=== PATIENT | male | born 1940 | race Caucasian/White ===

== ENCOUNTER 2018-01-05 20:32 | Inpatient (IN) | payer OTHER ==
[~2018-01-05] VITALS: Ht 165.1 cm; Wt 63.1 kg
[2018-01-06] VITALS (9 sets, daily range): BP systolic 95–110; BP diastolic 54–66
--- NOTE | 2018-01-06 | NUR ---
NEW ADMISSION NOTES PATIENT RECEIVED FROM [facility], DIRECT ADMIT TO MED SURG UNIT IN ROOM 313-1, DUE TO C/O INCREASED SWELLING OF LEGS X 1 WEEK & C/O SOB ON 01/05/18. A & O X 4, RESPONSIVE, HOB ELEVATED, NO SOB @ THIS TIME. ON O2 @ 2LMP VIA NC WITH O2SAT 95 %. ON TELE MONITORING WITH A FIB 90, HAS PACEMAKER LCW. NO C/O PAIN, NO ACUTE DISTRESS NOTED. ABLE TO VERBALIZE NEEDS. V/S CHECKED & WNL, ASSOCIATE DIRECTOR CAREER SERVICES MADE AWARE. ON REGULAR DIET. ALL NEW ORDERS NOTED & CARRIED OUT. BODY CHECK DONE, PHOTOS TAKEN & DOCUMENTED. ALL BELONGINGS ACCOUNTED FOR & DOCUMENTED BY PHOTOGRAMMETRIC TECH. USES URINAL & BRP WITH ASSISTANCE. BED IN LOW LOCKED POSITION. CALL LIGHT WITHIN REACH. WILL CONTINUE TO MONITOR CLOSELY.
[2018-01-06] MEDS ORDERED: ONDANSETRON HCL/PF 4 MG/2 ML VIAL IVP PRN (01:30)
[2018-01-06] MEDS ORDERED: ACETAMINOPHEN 325 MG TABLET PO PRN (01:30)
[2018-01-06] MEDS ORDERED: MAGNESIUM HYDROXIDE 30 ML UDC PO PRN (01:30)
[2018-01-06] MEDS ORDERED: ZOLPIDEM TARTRATE 5 MG TABLET PO PRN (01:30)
[2018-01-06] MEDS ORDERED: IPRATROPIUM NEB FS 0.5 MG/2.5 ML AMPUL.NEB NEB PRN (01:30)
[2018-01-06] MEDS ORDERED: ALBUTEROL FS 2.5 MG/0.5 ML VIAL.NEB NEB PRN (01:30)
[2018-01-06] MEDS ORDERED: Z GUARD REMEDY 2 OZ OINT TP PRN (01:30)
[2018-01-06] MEDS ORDERED: HYDROCODONE/APAP 5/325MG 1 EACH TABLET PO PRN (01:30)
[2018-01-06] MEDS ORDERED: LASIX IV (05:39)
[2018-01-06] MEDS ORDERED: ASPI-1169 PO (05:39)
[2018-01-06] MEDS ORDERED: LASIX PO (05:48)
[2018-01-06] MEDS ORDERED: OMEP10CA4 PO (05:48)
[2018-01-06] MEDS ORDERED: MIRT15TA PO (05:48)
[2018-01-06 06:47] LABS: CALCIUM, SERUM 8.1 mg/dL (8.5-10.1); CHLORIDE 105 mmol/L (98-107); GLUCOSE 96 mg/dL (74-106); MAGNESIUM 2.1 mg/dL (1.8-2.4); PHOSPHORUS 3.8 mg/dL (2.5-4.9); POTASSIUM 3.9 mmol/L (3.5-5.1); SODIUM SERUM 149 mmol/L (136-145); UREA NITROGEN, BLOOD 24 mg/dL (7-18)
[2018-01-06 06:56] LABS: BASOPHILS % (AUTO) 0.3 % (0.0-2.0); EOSINOPHILS # (AUTO) 0.1 /CMM (0.0-0.7); EOSINOPHILS % (AUTO) 2.5 % (0.0-6.0); HEMATOCRIT 27 % (39-51); HEMOGLOBIN 8.9 g/dL (13.5-17.5); LYMPHOCYTES # (AUTO) 0.8 /CMM (0.8-4.8); LYMPHOCYTES % (AUTO) 24.2 % (20.0-44.0); MEAN CORPUSCULAR HEMOGLOBIN 32 PG (26.0-33.0); MEAN CORPUSCULAR HGB CONC 33 g/dl (31.0-36.0); MEAN CORPUSCULAR VOLUME 96 fL (80-96); MONOCYTES # (AUTO) 0.2 /CMM (0.1-1.30); MONOCYTES % (AUTO) 6.9 % (2.0-12.0); NEUTROPHILS # (AUTO) 2.3 /CMM (1.8-8.9); NEUTROPHILS % (AUTO) 66.1 % (43.0-81.0); PLATELET COUNT (AUTO) 122 /CMM (150-450); RDW COEFFICIENT OF VARIATION 20.2 (11.5-15.0); RED BLOOD CELL COUNT(AUTO) 2.81 MIL/uL (4.5-6.0); WHITE BLOOD COUNT (AUTO) 3.5 K/uL (4.3-11.0)
[2018-01-06 06:58] LABS: CHOLESTEROL 96 mg/dL (<200); HDL CHOLESTEROL 46 mg/dL (40-60); LDL 49 mg/dL (0-99); TRIGLYCERIDES 42 mg/dL (30-150)
--- NOTE | 2018-01-06 06:59 | NUR ---
TELE NR CLOSING NOTES PATIENT RESTING IN BED, A & O X 4, RESPONSIVE, HOB ELEVATED, NO SOB @ THIS TIME. ON O2 @ 2LMP VIA NC WITH O2SAT 96 %. ON TELE MONITORING WITH A FIB 92, HAS PACEMAKER LCW. NO C/O PAIN, NO ACUTE DISTRESS NOTED. ABLE TO VERBALIZE NEEDS. ON REGULAR DIET. USES URINAL & BRP WITH ASSISTANCE. BED IN LOW LOCKED POSITION. CALL LIGHT WITHIN REACH. WILL ENDORSE TO AM RN FOR CONTINUITY OF CARE.
[2018-01-06 07:19] LABS: CARBON DIOXIDE 43 mmol/L (21-32)
--- NOTE | 2018-01-06 07:20 | NUR ---
LAB CALLED LAB PERSON CALLED TO INFORM THAT PATIENTS CO2 LEVEL IS 43, ENDORSED TO AM RN TO RELAY TO MD. PT IS IN NO DISTRESS, NO SOB NOTED @ THIS TIME.
[2018-01-06] MEDS ORDERED: FURO-145 PO (07:28)
[2018-01-06 09:00] LABS: ALBUMIN 2.7 g/dL (3.4-5.0); BILIRUBIN,DIRECT 0.2 mg/dL (0.0-0.2); BILIRUBIN,TOTAL 0.6 mg/dL (0.2-1.0); TOTAL PROTEIN, SERUM 7.5 g/dL (6.4-8.2)
[2018-01-06] MEDS ORDERED: ASPIRIN 81 MG TAB.CHEW PO SCH (09:00)
[2018-01-06 09:11] LABS: THYROID STIMULATING HORMONE 4.932 uIU/mL (0.358-3.74)
--- NOTE | 2018-01-06 09:31 | NUR ---
MARKETING DATA SPECIALIST NOTES PATIENT IS AWAKE, ON OXYGEN AT 2L VIA NC. ELEVATED CO2 43, DR. HERNANDEZ IS AWARE. AFIB HR 101 ON THE MONITOR, DENIES CHEST PAIN, NO SOB. MAINTAIN FALL PRECAUTION, WILL CONT TO MONITOR.
[2018-01-06] MEDS: FUROSEMIDE 40 MG/4 ML VIAL IV SCH ×3 (11:01→17:10)
--- NOTE | 2018-01-06 11:31 | NUR ---
ENDORSED TO REID BULLOCK FOR ELIANE.
--- NOTE | 2018-01-06 12:00 | NUR ---
RN NOTES PT IS SITTING UP IN BED, RESTING COMFORTABLY. PT ON 2L O2, RESPIRATIONS ARE EVEN AND UNLABORED. IV ON RFA INTACT AND SL. SAFETY MEASURES ARE IN PLACE, CALL LIGHT IS IN REACH. WILL CONTINUE TO MONITOR.
[2018-01-06 15:07] LABS: ABG BASE EXCESS 14.5 mmol/L; ABG PCO2 69.1 mmHg (35.0-45.0); ABG PH 7.398 (7.350-7.450); ABG PO2 131.1 mmHg (75.0-100.0); AaDO2 16.2 mmHg; COHb 0.4 % (0.5-1.5); MetHb 0.4 % (0.0-1.5); O2Hb 97.2 % (94.0-97.0); SITE, ABG Right Brachial; VENT MODE, BG NASAL CANNULA
[2018-01-06] MEDS: MIRTAZAPINE 15 MG TABLET PO SCH (17:10)
--- NOTE | 2018-01-06 18:31 | NUR ---
RN NOTES PT IS SITTING UP IN BED, ALERT AND RESTING COMFORTABLY. PT ON 2L O2, RESPIRATIONS ARE EVEN AND UNLABORED. IV ON RFA INTACT AND SL. ALL MEDS WERE GIVEN ORDERED AND PT NEEDS MET. NO SIGNS OF DISTRESS NOTED. SAFETY MEASURES ARE IN PLACE, CALL LIGHT IS IN REACH. WILL ENDORSE TO CUSTOMS OFFICER RN FOR CONTINUITY OF CARE.
--- NOTE | 2018-01-06 19:30 | NUR ---
RN NOTE PATIENT RESTING IN BED, A & O X 4, RESPONSIVE, HOB ELEVATED, NO SOB @ THIS TIME. ON O2 @ 2LMP VIA NC WITH O2SAT 96 %. ON TELE MONITORING WITH A FIB 98, HAS PACEMAKER LCW. NO C/O PAIN, NO ACUTE DISTRESS NOTED. ABLE TO VERBALIZE NEEDS. ON REGULAR DIET. USES URINAL & BRP WITH ASSISTANCE. BED IN LOW LOCKED POSITION. CALL LIGHT WITHIN REACH. WILL ENDORSE TO AM RN FOR CONTINUITY OF CARE.
--- NOTE | 2018-01-07 06:46 | NUR ---
ms rn note all needs met and attended to. Will endorse to day shift for darren.
[2018-01-07] MEDS ORDERED: PANTOPRAZOLE 40 MG TABLET.DR PO SCH (07:30)
--- NOTE | 2018-01-07 07:35 | NUR ---
MS RN OPENING NOTE. PT RECEIVED A&0X3, WATCHING T.V. PT WITH O2 VIA NC AT 2LPM, DENIES SOB, LUNGS AUSCULTATED DIMINISHED WITH CRACKLES. PT DENIES PAIN. PT WITH R FA IVC G#20 INTACT AND SALINE FLUSH PATENT. BED IN LOWEST LOCKED POSITION WITH HANDRAILSX2 AND CALL BISWAS WITHIN REACH. PT BRIEFED ON TODAY'S POC AND IS WITHOUT CONCERN OR COMPLAINT AT THIS TIME.
[2018-01-07 07:55] LABS: BASOPHILS % (AUTO) 0.4 % (0.0-2.0); EOSINOPHILS # (AUTO) 0.1 /CMM (0.0-0.7); EOSINOPHILS % (AUTO) 2.7 % (0.0-6.0); HEMATOCRIT 29 % (39-51); HEMOGLOBIN 9.3 g/dL (13.5-17.5); LYMPHOCYTES # (AUTO) 0.8 /CMM (0.8-4.8); LYMPHOCYTES % (AUTO) 22.2 % (20.0-44.0); MEAN CORPUSCULAR HEMOGLOBIN 32 PG (26.0-33.0); MEAN CORPUSCULAR HGB CONC 33 g/dl (31.0-36.0); MEAN CORPUSCULAR VOLUME 97 fL (80-96); MONOCYTES # (AUTO) 0.3 /CMM (0.1-1.30); MONOCYTES % (AUTO) 9.4 % (2.0-12.0); NEUTROPHILS # (AUTO) 2.4 /CMM (1.8-8.9); NEUTROPHILS % (AUTO) 65.3 % (43.0-81.0); PLATELET COUNT (AUTO) 128 /CMM (150-450); RDW COEFFICIENT OF VARIATION 20.4 (11.5-15.0); RED BLOOD CELL COUNT(AUTO) 2.94 MIL/uL (4.5-6.0); WHITE BLOOD COUNT (AUTO) 3.6 K/uL (4.3-11.0)
[2018-01-07 08:00] VITALS: BP 106/70
[2018-01-07 08:06] LABS: CALCIUM, SERUM 8.1 mg/dL (8.5-10.1); CHLORIDE 100 mmol/L (98-107); GLUCOSE 76 mg/dL (74-106); POTASSIUM 3.4 mmol/L (3.5-5.1); SODIUM SERUM 146 mmol/L (136-145); UREA NITROGEN, BLOOD 23 mg/dL (7-18)
--- NOTE | 2018-01-07 08:08 | NUR ---
RN NOTES. PT CARE ENDORSED TO REID BROWER AT BEDSIDE.
[2018-01-07 08:09] LABS: CARBON DIOXIDE 43 mmol/L (21-32)
--- NOTE | 2018-01-07 08:10 | NUR ---
MS RN OPENING NOTE RECEIVED REPORT FROM REID HILARIO. PATIENT IS ALERT AND ORIENTED x4. NO PAIN AT THIS TIME. NO SOB OR DISTRESS NOTED. CALL LIGHT WITHIN REACH. SAFETY MEASURES IMPLEMENTED. ABLE TO COMMUNICATE NEEDS. IV INTACT AND PATENT NO REDNESS OR SWELLING NOTED. ON 2L/MIN OXYGEN VIA NASAL CANNULA TOLERATING WELL. WILL CONTINUE TO MONITOR THROUGHOUT SHIFT
[2018-01-07] MEDS: ASPIRIN 81 MG TAB.CHEW PO SCH (08:19)
[2018-01-07] MEDS ORDERED: FUROSEMIDE 20 MG TABLET PO SCH (09:00)
[2018-01-07] MEDS ORDERED: POTASSIUM CHLORIDE 20 MEQ TAB.PRT.SR PO SCH (10:00)
--- NOTE | 2018-01-07 11:36 | NUR ---
WOUND CARE CONSULT: PT PRESENTS WITH SACRAL SCARRING (FRAGILE) AND RT LOWER LEG OPEN ABRASION, PRESENT ON ADMISSION. PT IS VERY THIN AND BONY. RECOMMENDATIONS MADE FOR SKIN PROTECTION AND WOUND CARE. DISCUSSED WITH NURSING STAFF. IN AGREEMENT WITH PLAN OF CARE. CURRENT BARRERA SCORE IS 17. Addendum: 01/07/18 at 1138 by JILLIAN CABELLO WNDNU Amended: Links added.
[2018-01-07] MEDS: BACITRACIN/POLYMYXIN B 15 GM TUBE TP SCH (12:00)
[2018-01-07] MEDS ORDERED: PANTOPRAZOLE 40 MG VIAL IV SCH (14:30)
[2018-01-07 15:58] VITALS: BP 97/65
[2018-01-07] MEDS: MIRTAZAPINE 15 MG TABLET PO SCH (17:52)
--- NOTE | 2018-01-07 18:31 | NUR ---
MS RN CLOSING NOTE PATIENT IS ALERT AND ORIENTED x4. NO PAIN AT THIS TIME. NO SOB OR DISTRESS NOTED. CALL LIGHT WITHIN REACH AT ALL TIMES. SAFETY MEASURES IMPLEMENTED. ABLE TO COMMUNICATE NEEDS. IV INTACT AND PATENT NO REDNESS OR SWELLING NOTED. ALL NURSING CARE NEEDS NEEDS ATTENDED. COLLECTED AFB SPUTUM TO RULE OUT POSSIBLE TB. PATIENT NOW IN ROOM 317 FOR NEGATIVE PRESSURE ROOM. REQUIRES CPAP/BIPAP AT NIGHT ONLY PER MD BIANCHI. ON ROOM AIR AT THIS TIME WITH O2 SATURATION AT 97% WILL ENDORSE TO UPPER CUTTER NURSE FOR ELIANE
--- NOTE | 2018-01-07 19:15 | NUR ---
MS/RN OPENING NOTES PT RECEIVED AWAKE, RESTING COMFORTABLY IN BED. A/OX3. ON 2L O2 VIA NC, BREATHING EVEN AND UNLABORED. DENIES SOB OR PAIN AT THIS TIME. PRODUCTIVE COUGH NOTED. ON ISOLATION TO R/O TB. IV TO RFA PATENT AND INTACT. BED IN LOW/LOCKED POSITION WITH CALL LIGHT IN REACH. SIDE RAILS UPX2 AND BED ALARM ON FOR SAFETY. WITH ORDERS FOR CPAP/BIPAP TONIGHT. RT AWARE. WILL CONTINUE TO MONITOR
[2018-01-07 20:00] VITALS: BP 102/61
--- NOTE | 2018-01-07 20:28 | NUR ---
MS/RN NOTES PER DR. TOLBERT, ORDERS FOR CPAP/BIPAPA SETTINGS TO BE 15 OVER 5 WITH A RATE OF 16. ORDERS NOTED AND READBACK PER PROTOCOL FOR VERIFICATION. RT NOTIFIED OF SETTINGS.
[2018-01-07] MEDS ORDERED: FUROSEMIDE 20 MG/2 ML VIAL IV SCH (20:30)
--- NOTE | 2018-01-07 20:53 | NUR ---
RT NOTE PATIENT RECEIVED ON 2LPM NC. BIPAP SET UP ON CURRENT ORDERED SETTINGS. PATIENT CURRENTLY REFUSING BIPAP AT THIS TIME. PRIMARY NURSE NOTIFIED AND AWARE. PATIENT HAS NO SIGNS OF RESPIRATORY DISTRESS NOTED. WILL CONTINUE TO MONITOR.
--- NOTE | 2018-01-07 20:59 | NUR ---
MS/RN NOTES SPOKE TO LAB, NOT ENOUGH SPUTUM COLLECTED FOR AFB. PT MADE AWARE. WILL RECOLLECT
--- NOTE | 2018-01-07 21:20 | NUR ---
MS/RN NOTES BP 104/68, PX=[id number] PRIOR TO ONE TIME DOSE OF LASIX 40MG. EDUCATED PT ON SIDE EFFECTS OF LASIX AND EXTRA URINAL PROVIDED. ENCOURAGED PT NOT TO GET OUT OF BED WITHOUT ASSISTANCE, PT VERBALIZED UNDERSTANDING. GAVE LASIX SLOWLY OVER 4MINS
--- NOTE | 2018-01-07 22:29 | NUR ---
RT NOTE PATIENT PLACED ON BIPAP ON SETTINGS OF 15/5 RR16 FIO2 35% PER NURSE EDUARD MATHEWS. PATIENT IS TOLERATING BIPAP WELL AT THIS TIME. NO SIGNS OF RESPIRATORY DISTRESS NOTED. BIPAP IS PLUGGED INTO RED OUTLET. ALARMS ARE ON AND AUDIBLE. WILL CONTINUE TO MONITOR. Addendum: 01/07/18 at 2309 by JONO LLOYD RT Amended: Links added.
--- NOTE | 2018-01-08 03:30 | NUR ---
RT NOTE PATIENT IS AWAKE AND ALERT. PATIENT REFUSING BIPAP AT THIS TIME. EXPLAINED IMPORTANCE AND BENEFITS OF BIPAP. NO SIGNS OF RESPIRATORY DISTRESS AT THIS TIME. PATIENT CURRENTLY TOLERATING 2LPM VIA NC. SpO2 97% HR 109.
--- NOTE | 2018-01-08 07:00 | NUR ---
MS/RN CLOSING NOTES PT RESTING COMFORTABLY IN BED. A/OX3. ON 2L O2 VIA NC, BREATHING EVEN AND UNLABORED. NO SOB OR PAIN AT THIS TIME. IV TO RFA PATENT AND INTACT. ISOLATION PRECAUTIONS IMPLEMENTED THROUGHOUT SHIFT. PT USED CPAP FOR A FEW HOURS DURING THE SHIFT. PT REFUSED SINCE 329. EDUCATION PROVIDED X3 OF IMPORTANCE OF CPAP USE, PT VERBALIZED UNDERSTANDING BUT STILL REFUSING. UNABLE TO COLLECT SPUTUM. BED IN LOW/LOCKED POSITION WITH CALL LIGHT IN REACH. SIDE RAILS UPX2. WILL ENDORSE TO DAY SHIFT RN ELIANE.
--- NOTE | 2018-01-08 07:30 | NUR ---
MS/RN OPENING NOTE PATIENT IN BED AWAKE. ALERT AND ORIENTED X4. DENIES SOB. RESPIRATION REGULAR AND UNLABORED. DENIES PAIN AT THIS TIME. IN NO APPARENT DISTRESS. THE PATIENT IS EDUCTAED ABOUT THE CPAP AND THE PATIENT VERBALIZED UNDERSTANDING AND SAID WILL BE COMPLIANT WITH CPAP USE. RFA G 20 PATENT. THE PATIENT IS REMINDED. THE PATIENT CONTINENT. NO BLADDER DISTENSION NOTED. BED LOW AND LOCKED. SIDE RAILS UP X2. CALL LIGHT WITHIN REACH. WILL CONTINUE TO MONITOR.
[2018-01-08 07:42] LABS: BASOPHILS % (AUTO) 0.5 % (0.0-2.0); EOSINOPHILS # (AUTO) 0.1 /CMM (0.0-0.7); EOSINOPHILS % (AUTO) 2.4 % (0.0-6.0); HEMATOCRIT 28 % (39-51); LYMPHOCYTES # (AUTO) 0.7 /CMM (0.8-4.8); LYMPHOCYTES % (AUTO) 19.7 % (20.0-44.0); MEAN CORPUSCULAR HEMOGLOBIN 32 PG (26.0-33.0); MEAN CORPUSCULAR HGB CONC 33 g/dl (31.0-36.0); MEAN CORPUSCULAR VOLUME 97 fL (80-96); MONOCYTES # (AUTO) 0.3 /CMM (0.1-1.30); NEUTROPHILS # (AUTO) 2.5 /CMM (1.8-8.9); NEUTROPHILS % (AUTO) 68.4 % (43.0-81.0); PLATELET COUNT (AUTO) 119 /CMM (150-450); RED BLOOD CELL COUNT(AUTO) 2.84 MIL/uL (4.5-6.0); WHITE BLOOD COUNT (AUTO) 3.7 K/uL (4.3-11.0)
[2018-01-08 08:00] LABS: CALCIUM, SERUM 8.1 mg/dL (8.5-10.1); CHLORIDE 101 mmol/L (98-107); CREATININE 0.9 mg/dL (0.6-1.3); GLUCOSE 84 mg/dL (74-106); POTASSIUM 3.6 mmol/L (3.5-5.1); SODIUM SERUM 143 mmol/L (136-145); UREA NITROGEN, BLOOD 24 mg/dL (7-18)
--- NOTE | 2018-01-08 08:09 | NUR ---
RT NOTE PT RCVD ON N/C 28%. SPO2 96%. BREATH SOUNDS DIMINISHED. NO DISTRESS NOTED. PT IS AWAKE AND ALERT.
[2018-01-08 08:13] VITALS: BP 108/69
[2018-01-08 08:18] LABS: CARBON DIOXIDE 44 mmol/L (21-32)
[2018-01-08] MEDS: ASPIRIN 81 MG TAB.CHEW PO SCH (09:17)
--- NOTE | 2018-01-08 09:43 | NUR ---
MS/RN NOTE POLYSPORIN NOT DELIVERED YET. FOLLOW UP CALL TO PHARM IS MADE.
[2018-01-08] MEDS: BACITRACIN/POLYMYXIN B 15 GM TUBE TP SCH (13:56)
[2018-01-08] MEDS: PANTOPRAZOLE 40 MG VIAL IV SCH (13:57)
[2018-01-08] MEDS ORDERED: POTASSIUM CHLORIDE 20 MEQ POWDER PACKET PO ONE (15:00)
[2018-01-08 16:00] VITALS: BP 106/68
[2018-01-08] MEDS: BUMETANIDE (1 MG) 1 MG TABLET PO SCH (16:32)
--- NOTE | 2018-01-08 18:11 | NUR ---
MS/RN CLOSING NOTE PATIENT IN BED AWAKE/ ALERT AND ORIENTED X4. DENIES SOB. RESPIRATION REGULAR AND UNLABORED. DENIES PAIN AT THIS TIME. RIGHT FOREARM G 20 PATENT. GOOD AND GENTLE SKIN CARE RENDERED. KEPT CLEAN, DRY AND COMFORTABLE. ALL NEEDS ATTENDED AND ANTICIPATED. BED LOW AND LOCKED. SIDE RAILS UP X2. CALL LIGHT WITHIN REACH. WILL ENDORSE TO BLOWER FEEDER DYED RAW STOCK.
[2018-01-08] MEDS: MIRTAZAPINE 15 MG TABLET PO SCH (18:45)
--- NOTE | 2018-01-08 19:25 | NUR ---
RN OPEN NOTES RECEIVED PATIENT AWAKE IN BED EATING WITH AT BEDSIDE. A/O X4. NO SIGNS OF DISTRESS OR DISCOMFORT. BREATHING EVEN AND UNLABORED. ON 2LPM O2 VIA NC. IV ACCESS IN RFA, PATENT AND INTACT, NO SIGNS OF REDNESS OR INFILTRATION. BED IN LOW LOCKED POSITION WITH SIDE RAILS X2. CALL LIGHT WITHIN REACH. WILL CONTINUE TO MONITOR.
[2018-01-08 20:00] VITALS: BP 103/63
--- NOTE | 2018-01-09 | NUR ---
RN NOTES PATIENT REFUSING CPAP X3. STATES HE SPOKE WITH THE DRPamela AND PER MD ITS OK FOR HIM NOT TO USE IT. RISK AND BENEFITS EXPLAINED. NO S/S OF SOB OR DISTRESS. WILL CONTINUE TO MONITOR.
--- NOTE | 2018-01-09 06:53 | NUR ---
RN CLOSING NOTES PATIENT RESTING IN BED WITH AT BEDSIDE, EASILY AROUSABLE. A/O X4. NO SIGNS OF DISTRESS OR DISCOMFORT. BREATHING EVEN AND UNLABORED. ON 2LPM O2 VIA NC. IV ACCESS IN RFA, PATENT AND INTACT, NO SIGNS OF REDNESS OR INFILTRATION. ALL NEEDS MET. NO SIGNIFICANT CHANGES THROUGH THE NIGHT. BED IN LOW LOCKED POSITION WITH SIDE RAILS X2. CALL LIGHT WITHIN REACH. WILL ENDORSE TO AM SHIFT FOR ELIANE.
--- NOTE | 2018-01-09 07:10 | NUR ---
RN NOTES PATIENT RESTING IN BED. NONLABORED BREATHING NOTED ON 2 L NASAL CANNULA. PATIENT AOX4. DENIES PAIN, DENYING COUGHING. IV ACCESS ON RFA PATENT AND INTACT. PATIENT KEPT CLEAN AND COMFORTABLE. BED IN LOWEST LOCKED POSITION. CALL LIGHT WITHIN REACH. EDUCATED MARKETING PROJECT MANAGER LIGHT USAGE
--- NOTE | 2018-01-09 07:10 | NUR ---
RN INITIAL NOTED PATIENT RESTING IN BED. NONLABORED BREATHING NOTED ON 2L NASAL CANNULA. NO SIGNS OF DISTRESS. IV SIT ON RIGHT HAND PATENT AND INTACT. DENYING PAIN. NO COUGHING NOTED. BED IN LOWEST LOCKED POSITION. CALL LIGHT WITHIN REACH.
[2018-01-09 07:28] LABS: CHLORIDE 102 mmol/L (98-107); CREATININE 0.9 mg/dL (0.6-1.3); GLUCOSE 85 mg/dL (74-106); POTASSIUM 3.9 mmol/L (3.5-5.1); SODIUM SERUM 145 mmol/L (136-145); UREA NITROGEN, BLOOD 23 mg/dL (7-18)
[2018-01-09 07:37] LABS: CARBON DIOXIDE 44 mmol/L (21-32)
[2018-01-09 08:00] VITALS: BP 97/55
[2018-01-09] MEDS: ASPIRIN 81 MG TAB.CHEW PO SCH (09:23)
[2018-01-09] MEDS: BUMETANIDE (1 MG) 1 MG TABLET PO SCH (09:23)
[2018-01-09] MEDS: BACITRACIN/POLYMYXIN B 15 GM TUBE TP SCH (09:30)
--- NOTE | 2018-01-09 10:00 | NUR ---
RN NOTES: PATIENT REFUSING CPAP, ENEDELIA TIMMONS AWARE. AWARE OF CO2 OF 44 AND TODAY'S LABS
[2018-01-09] MEDS: PANTOPRAZOLE 40 MG VIAL IV SCH (13:36)
[2018-01-09 16:00] VITALS: BP 93/60
[2018-01-09 16:11] VITALS: BP 93/60
[2018-01-09] MEDS: MIRTAZAPINE 15 MG TABLET PO SCH (18:19)
--- NOTE | 2018-01-09 19:45 | NUR ---
RN CLOSING NOTED PATIENT RESTING IN BED. NONLABORED BREATHING NOTED ON 2L NASAL CANNULA. NO SIGNS OF DISTRESS. IV SIT ON RIGHT HAND PATENT AND INTACT. DENYING PAIN. NO COUGHING NOTED. BED IN LOWEST LOCKED POSITION. CALL LIGHT WITHIN REACH. DURING SHIFT, PATIENT AMBULATED TO BATHROOM WITH ASSISTANCE,DENIED DIZZINESS. KEPT CLEAN AND DRY.EDUCATED ON THE IMPORTANCE OF STOOL COLLECTION FOR OCCULT BLOOD TEST. ENDORSED TO NEXT SHIFT
[2018-01-09 20:00] VITALS: BP 105/65
--- NOTE | 2018-01-10 06:45 | NUR ---
MS RN NOTES PT C/O SOB. PT REQUESTING FOR BREATHING TX. RT NOTIFIED. WILL CONTINUE TO MONITOR.
--- NOTE | 2018-01-10 06:47 | NUR ---
PATIENT PLACED ON BIPAP TEMPORARILY. TAKEN OFF AFTER PT REGAIN THEIR BREATH. BREATHING TX GIVEN. PT SAID SOB IS RECOVERED. WILL CONTINUE TO MONITOR Addendum: 01/10/18 at 0650 by ELVIS FRAIRE RT Amended: Links added.
--- NOTE | 2018-01-10 07:00 | NUR ---
MS RN NOTES AWAKE & RESPONSIVE. NOT IN ANY DISTRESS. NO SOB NOTED. DENIES ANY PAIN OR DISCOMFORT AT THIS TIME. WITH IV-HL PATENT & INTACT. CALL LIGHT WITHIN REACH. BED IN LOWEST POSITION. SR UP X 2 FOR SAFETY. WILL ENDORSE TO NEXT SHIFT.
[2018-01-10 07:17] LABS: BASOPHILS % (AUTO) 0.2 % (0.0-2.0); EOSINOPHILS # (AUTO) 0.1 /CMM (0.0-0.7); HEMATOCRIT 29 % (39-51); HEMOGLOBIN 9.6 g/dL (13.5-17.5); LYMPHOCYTES # (AUTO) 0.9 /CMM (0.8-4.8); MEAN CORPUSCULAR HEMOGLOBIN 32 PG (26.0-33.0); MEAN CORPUSCULAR HGB CONC 33 g/dl (31.0-36.0); MEAN CORPUSCULAR VOLUME 97 fL (80-96); MONOCYTES # (AUTO) 0.3 /CMM (0.1-1.30); MONOCYTES % (AUTO) 8.2 % (2.0-12.0); NEUTROPHILS # (AUTO) 2.7 /CMM (1.8-8.9); NEUTROPHILS % (AUTO) 65.6 % (43.0-81.0); PLATELET COUNT (AUTO) 131 /CMM (150-450); RDW COEFFICIENT OF VARIATION 19.8 (11.5-15.0); RED BLOOD CELL COUNT(AUTO) 2.99 MIL/uL (4.5-6.0); WHITE BLOOD COUNT (AUTO) 4.1 K/uL (4.3-11.0)
[2018-01-10 07:47] LABS: CALCIUM, SERUM 8.1 mg/dL (8.5-10.1); CHLORIDE 101 mmol/L (98-107); CREATININE 0.9 mg/dL (0.6-1.3); GLUCOSE 96 mg/dL (74-106); POTASSIUM 4.1 mmol/L (3.5-5.1); SODIUM SERUM 143 mmol/L (136-145); UREA NITROGEN, BLOOD 23 mg/dL (7-18)
[2018-01-10 07:51] LABS: CARBON DIOXIDE 44 mmol/L (21-32)
[2018-01-10 08:00] VITALS: BP 107/64
--- NOTE | 2018-01-10 08:00 | NUR ---
rn notes RECEIVED PATIENT IN THE ROOM, POSSIBLE TB,, PATIENT ON O2 -2L NC, V/S TAKEN STABLE, PATIENT HAS NO RESPIRATORY DISTRESS, REFUSED PAIN AT THIS TIME. ENCOURAGED TO EXPRESS FEELINGS AND CONCERNS. PATIENT USING URINAL. PATIENT TURN AND REPOSTION Q 2 HR. CALL LIGHT WITHIN TO REACH, SAFETY PRECAUTION MAINTAINED ALL THE TIME.
[2018-01-10] MEDS: BACITRACIN/POLYMYXIN B 15 GM TUBE TP SCH (09:47)
[2018-01-10] MEDS: BUMETANIDE (1 MG) 1 MG TABLET PO SCH (09:47)
[2018-01-10] MEDS: ASPIRIN 81 MG TAB.CHEW PO SCH (09:47)
--- NOTE | 2018-01-10 10:00 | NUR ---
RN NOTES PATIENT MED COMPLIANT, GET NEGATIVE FOR SPUTUM SPECIMEN, NEEDS ATTENDED AND ANTICIPATED, D/C ON ISOLATION. V/S TAKEN STABLE. PATIENT WILL D/C HOME WITH HOME HEALTH.
[2018-01-10 11:20] VITALS: BP 113/67
[2018-01-10] MEDS: PANTOPRAZOLE 40 MG VIAL IV SCH (14:00)
--- NOTE | 2018-01-10 14:28 | NUR ---
DISCHARGE NOTES PATIENT DISCHARGE AT THIS TIME GOING HOME. PATIENT A/O X3/4, NO RESPIRATORY DISTRESS, V/S STABLE, NO C/O PAIN. AT THIS TIME, MEDICALLY STABLE. MED RECONCILIATION, AND DISCHARGE ORDER REVIEWED AND EXPLAINED TO PATIENT AND . PATIENT VERBALIZED UNDERSTANDING. PATIENT REFUSED SIGN PAPERWORK, PICTURE TAKEN. PATIENT WILL FOLLOW UP WITH PRIMARY MD. PRESCRIPTION GIVEN TO THE PATIENT. ESCORTED PATIENT TO THE LOBBY FOR SAFETY. PATIENT TSO BY CHARMAINE.
[2018-01-11 14:20] LABS: QFT MITOGEN VALUE 6.45 IU/mL (.); QFT TB AG MINUS NIL VALUE 0.05 IU/mL (.); QFT TB AG VALUE 0.13 IU/mL (.); QFT TB GOLD Negative (Negative)
== END 2018-01-10 15:10 | disposition home health service (06) | DRG 291 ==
LOC: TELE 23:51 → MED 01-06 09:56
PROVIDERS: ADMIT Nurse Practitioner Acute Care; ATTEND Nurse Practitioner Acute Care
DX: I50.23 Acute on chronic systolic (congestive) heart failure (principal); J96.01 Acute respiratory failure with hypoxia; I26.09 Other pulmonary embolism with acute cor pulmonale; J96.02 Acute respiratory failure with hypercapnia; N17.9 Acute kidney failure, unspecified; J18.9 Pneumonia, unspecified organism; D68.59 Other primary thrombophilia; E44.0 Moderate protein-calorie malnutrition; D69.6 Thrombocytopenia, unspecified; I48.91 Unspecified atrial fibrillation; J84.10 Pulmonary fibrosis, unspecified; N18.9 Chronic kidney disease, unspecified; J44.9 Chronic obstructive pulmonary disease, unspecified; D63.8 Anemia in other chronic diseases classified elsewhere; E78.5 Hyperlipidemia, unspecified; I25.10 Atherosclerotic heart disease of native coronary artery without angina pectoris; Z99.81 Dependence on supplemental oxygen; Z87.891 Personal history of nicotine dependence; Z79.82 Long term (current) use of aspirin; I73.9 Peripheral vascular disease, unspecified; Z77.090 Contact with and (suspected) exposure to asbestos; D72.819 Decreased white blood cell count, unspecified; L98.9 Disorder of the skin and subcutaneous tissue, unspecified; K21.9 Gastro-esophageal reflux disease without esophagitis; N50.89 Other specified disorders of the male genital organs; Z95.1 Presence of aortocoronary bypass graft
CPT/HCPCS: 36415; 36600; 71045-TC; 71250-TC; 80048-TC; 80061-TC; 80076-TC; 82306; 82728-TC; 82803-TC; 83540-TC; 83735-TC; 84100-TC; 84439-TC; 84443-TC; 84484-TC; 85025-TC; 85652-TC; 87070-TC; 87081-TC; 87116; 87206; 87400; 93307-TC; 93970-TC; 94799-TC; C9113; J1940; Z7610

== ENCOUNTER 2018-02-17 12:52 | Inpatient (IN) | payer OTHER ==
[~2018-02-17] VITALS: Ht 177.8 cm; Wt 68.0 kg
[~2018-02-17 12:52] MED LIST: ASPI-1169 PO; FURO-145 PO; MIRT15TA PO; OMEP10CA4 PO
--- NOTE | 2018-02-17 13:22 | NUR ---
BB FROM HOME FOR EPISODES OF SOB FOR THE LAST WK, AND BILATERAL LEG SWELLING. PT HAS A H/O CHRONIC CHF. ON CONT O2 AT 2LPM VIA NC. GOWNED AND PLACED ON CONT CARDIAC AND POX MONITORING. ALL NEEDS ARE ATTENDED, KEPT WARM AND COMFORTABLE. SEEN AND EVALUATED BY DR PIPER
[2018-02-17 13:32] LABS: BASOPHILS % (AUTO) 0.3 % (0.0-2.0); EOSINOPHILS % (AUTO) 1.8 % (0.0-6.0); HEMATOCRIT 28 % (39-51); HEMOGLOBIN 9.8 g/dL (13.5-17.5); LYMPHOCYTES # (AUTO) 0.7 /CMM (0.8-4.8); LYMPHOCYTES % (AUTO) 18.8 % (20.0-44.0); MEAN CORPUSCULAR HGB CONC 35 g/dl (31.0-36.0); MEAN CORPUSCULAR VOLUME 94 fL (80-96); MONOCYTES # (AUTO) 0.3 /CMM (0.1-1.30); MONOCYTES % (AUTO) 7.8 % (2.0-12.0); NEUTROPHILS # (AUTO) 2.5 /CMM (1.8-8.9); NEUTROPHILS % (AUTO) 71.3 % (43.0-81.0); PLATELET COUNT (AUTO) 158 /CMM (150-450); RDW COEFFICIENT OF VARIATION 17.9 (11.5-15.0); RED BLOOD CELL COUNT(AUTO) 2.93 MIL/uL (4.5-6.0); WHITE BLOOD COUNT (AUTO) 3.6 K/uL (4.3-11.0)
[2018-02-17 13:39] LABS: INR 1.18 (0.85-1.15)
[2018-02-17 13:43] LABS: TROPONIN I < 0.017 ng/mL (0.00-0.056)
--- NOTE | 2018-02-17 13:43 | NUR ---
CALLED NURSE SUP FOR TELE BED
[2018-02-17 13:48] LABS: ALANINE AMINOTRANSFERASE 40 U/L (12-78); ALKALINE PHOSPHATASE 125 U/L (46-116); ASPARTATE AMINOTRANSFERASE 38 U/L (15-37); B-TYPE NATRIURETIC PEPTIDE 10995 PG/ML (0-125); BILIRUBIN,DIRECT 0.3 mg/dL (0.0-0.2); BILIRUBIN,TOTAL 0.6 mg/dL (0.2-1.0); CALCIUM, SERUM 8.9 mg/dL (8.5-10.1); CHLORIDE 101 mmol/L (98-107); GLUCOSE 126 mg/dL (74-106); POTASSIUM 4.4 mmol/L (3.5-5.1); SODIUM SERUM 143 mmol/L (136-145); TOTAL PROTEIN, SERUM 7.6 g/dL (6.4-8.2); UREA NITROGEN, BLOOD 24 mg/dL (7-18)
[2018-02-17 13:49] LABS: CARBON DIOXIDE 41 mmol/L (21-32)
[2018-02-17] MEDS ORDERED: BUMETANIDE INJ 0.25 MG/ML VIAL IV ONE (14:00)
[2018-02-17] MEDS ORDERED: BUMETANIDE INJ 0.25 MG/ML VIAL ONE (14:14)
--- NOTE | 2018-02-17 14:29 | NUR ---
REPORT GIVEN TO CHRISTEN MATHEWS FOR CONT OF CARE.
--- NOTE | 2018-02-17 14:41 | NUR ---
PT TRANSFERRED TO FLOOR VIA ACLS PROTOCOL.
--- NOTE | 2018-02-17 14:45 | NUR ---
RN NOTE REPORT RECEIVED FROM DARÍO. PATIENT ARRIVED AT THE UNIT IN ROOM 114-1. PATIENT IS ALERT AND ORIENTED X 4. HE IS ABLE TO MAKE THINGS KNOWN AND VERBALIZE NEEDS. BREATHING EVEN UNLABORED WITH NO DISTRESS NOTED. ON CONTINUOUS O2 2L VIA NC. ON [place] INFORMATION CLERK OF A-FIB HR OF 113. RIGHT AC GAUGE 18 IV SITE IN INTACT AND PATENT. WOUND PICTURES TAKEN AND DOCUMENTED IN CHART. SCD'S PUMP IN PLACE AND ON PATIENT. BED LOCKED AND LOW POSITION. ALL SAFETY MEASURES PROVIDED. WILL CONTINUE TO MONITOR CONTINUITY OF CARE.
[2018-02-17 15:23] VITALS: BP 101/72
[2018-02-17] MEDS ORDERED: ALBUTEROL FS 2.5 MG/3 ML VIAL.NEB NEB PRN (16:00)
[2018-02-17] MEDS: FUROSEMIDE 40 MG/4 ML VIAL IV SCH (17:16)
[2018-02-17] MEDS: MIRTAZAPINE 15 MG TABLET PO SCH (17:16)
[2018-02-17 18:37] VITALS: BP 101/72
--- NOTE | 2018-02-17 19:30 | NUR ---
RN NOTE PATIENT REMAINED STABLE THROUGHOUT SHIFT. NO ACUTE CHANGES OR DISTRESS NOTED. WILL ENDORSE TO NEXT SHIFT TO CONTINUE TO MONITOR CONTINUITY OF CARE.
--- NOTE | 2018-02-17 19:58 | NUR ---
RN TEL INITIAL NOTE RECEIVED PT SITTING ON BED, HIGH FOWLERS POSITION, SLIGHTLY LABORED ON BREATHING, ASSESSED FOR INCREASED WOB, RR 20, HX, COPD, ADMITTED FOR CHF AND AFIB, [id number], BUMEX GIVEN AND LASIX ORDERED. ON 2 L NC, A LITTLE ANXIOUS, SPENT TIME WITH PT ATTENDED TO IMMEDIATE NEEDS, PROVIDED CALL LIGHT, ASSURED PT THAT WILL FREQUENTLY CHECK ON HIM THROUGH SHIFT.
[2018-02-17 20:00] VITALS: BP 100/81
--- NOTE | 2018-02-17 23:30 | NUR ---
ROLL RECLAIMER NOTE RECEIVED REPORT FROM JAKOB MATHEWS, PATIENT RESTING IN BED WITH HOB ELEVATED, DENIES ANY PAIN, ON 2L O2 TOLERATING WELL, DENIES ANY CARDIAC OR RESPIRATORY DISTRESS, URINAL AT BEDSIDE, RAC #18G, PATENT FLUSHING WELL, SITE CDI. NO PAIN REPORTED. BED IN LOW LOCKED POSITION SAFETY MAINTAINED AT ALL TIMES, CALL LIGHT WITHIN REACH. WILL CONTINUE TO MONITOR FOR ANY CHANGES IN CONDITION.
[2018-02-18] VITALS: BP 110/79
[2018-02-18 04:00] VITALS: BP 102/67
--- NOTE | 2018-02-18 07:00 | NUR ---
RN NOTE RECEIVED PT ON BED, A/Ox4, RESPIRATION ELOINA AND UNLABORED, ON O2 AT 3 L N/C , NO SOB NOTED, ON TELE A.FIB HR IN 100'S, R AC IV SITE CDI, SR UP x3, CALL LIGHT WITHIN EASY REACH, BED LOCKED AND IN LOWEST POSITION , CONTINUE TO MONITOR [place].
[2018-02-18 08:00] VITALS: BP 107/68
[2018-02-18] MEDS: PANTOPRAZOLE 40 MG TABLET.DR PO SCH (08:20)
[2018-02-18] MEDS: FUROSEMIDE 40 MG/4 ML VIAL IV SCH ×2 (08:20→17:03)
[2018-02-18] MEDS: ASPIRIN 81 MG TAB.CHEW PO SCH (08:22)
[2018-02-18] MEDS: ALBUTEROL FS 2.5 MG/3 ML VIAL.NEB NEB SCH ×4 (10:00→22:46)
[2018-02-18] MEDS: ENOXAPARIN SODIUM 40 MG/0.4 ML DISP.SYRIN SQ SCH (10:37)
[2018-02-18] MEDS: DIGOXIN INJ 0.5 MG/2 ML AMPUL IV SCH ×2 (11:38→17:03)
--- NOTE | 2018-02-18 14:10 | NUR ---
RN NOTES O2 SAT DECREASED TO 2L O2 N/C PER MD ORDER AND ABG RESULTS . 02 SAT 96%. CONTINUE TO MONITOR .
[2018-02-18 14:28] LABS: ABG BASE EXCESS 13.3 mmol/L; ABG OXYGEN SATURATION 97.5 % (92.0-98.5); ABG PCO2 65.1 mmHg (35.0-45.0); ABG PH 7.408 (7.350-7.450); ABG PO2 134.7 mmHg (75.0-100.0); AaDO2 17.3 mmHg; COHb 0.5 % (0.5-1.5); MetHb 0.1 % (0.0-1.5); O2Hb 96.9 % (94.0-97.0); SITE, ABG Left Radial
[2018-02-18 16:00] VITALS: BP 121/61
[2018-02-18] MEDS: MIRTAZAPINE 15 MG TABLET PO SCH (17:03)
--- NOTE | 2018-02-18 18:33 | NUR ---
RN NOTES PT STABLE , ENCOURAGED PO INTAKE , R AC IV SITE CDI, NO SOB NOTED, SR UP x3, CALL LIGHT WITHIN EASY REACH, WILL ENDORSE TO CHEMICAL WASTE MANAGEMENT TECHNICIAN NURSE FOR ELIANE
[2018-02-18] MEDS: BOOST PLUS FOOD-VANILLA 237 ML BOX PO SCH (19:03)
--- NOTE | 2018-02-18 19:15 | NUR ---
RN OPENING NOTE PATIENT RECEIVED ASLEEP IN BED, EASILY AWOKEN. NO SOB, IN NO ACUTE DISTRESS. CONTINUES TO RECEIVE O2 VIA NC @ 2LPM. PLACED BED IN LOW POSITION, CALL LIGHT WITHIN EASY REACH.WILL CONTINUE TO MONITOR.
[2018-02-18 20:00] VITALS: BP 109/60
[2018-02-19] VITALS (7 sets, daily range): BP systolic 99–109; BP diastolic 55–63
[2018-02-19] MEDS ORDERED: DIGOXIN INJ 0.5 MG/2 ML AMPUL ONE (01:45)
[2018-02-19] MEDS: DIGOXIN INJ 0.5 MG/2 ML AMPUL IV SCH (01:51)
--- NOTE | 2018-02-19 03:10 | NUR ---
RN MS NOTES PATIENT SITTING UP IN BED, AWAKE, ALERT AND ORIENTED X 4, NO SOB NOTED, BREATHING EVEN AND UNLABORED, IN NO ACUTE DISTRESS AND WITH NO C/O PAIN. ON O2 @2LPM WITH O2 SAT 96-100%. PATIENT WITH IV PERIPHERAL LINE ON RAC G#22, INTACT AND PATENT. TRANSFERRED TO [facility], IN STABLE CONDITION. GAVE BEDSIDE REPORT TO REID BALCKBURN FOR CONTINUITY OF CARE.
[2018-02-19] MEDS: ALBUTEROL FS 2.5 MG/3 ML VIAL.NEB NEB SCH ×6 (03:30→23:53)
--- NOTE | 2018-02-19 03:30 | NUR ---
RN OPENING NOTES Pt WAS TRANSFERRED FROM [facility]. Pt IS A/OX4, VERBAL, NO S/S OF ACUTE DISTRESS OR SOB NOTED. Pt ON 2L NC. NO C/O PAIN AT THIS TIME. IV ACCESS ON RAC #18G, SL. LCW PACEMAKER. ON TELE MONITOR FOR OBSERVATION, WAS GIVEN DIGOXIN IN [facility] DUE TO AFIB. SAFETY MEASURES IN PLACE. BED LOW, LOCKED, HOB ELEVATED, SIDE RAILS UP, CALL LIGHT AND BEDSIDE TABLE WITHIN REACH. WILL CONTINUE TO MONITOR Pt THROUGHOUT THE NIGHT FOR SAFETY.
--- NOTE | 2018-02-19 06:40 | NUR ---
RN CLOSING NOTES NO SIGNIFICANT CHANGES IN Pt's CONDITION DURING REMAINDER OF SHIFT. Pt ON TELE MONITOR FOR OBSERVATION. NO S/S OF ACUTE DISTRESS OR SOB NOTED DURING THE NIGHT. ALL NEEDS MET AND ATTENDED TO. SAFETY MEASURES IN PLACE. WILL ENDORSE TO DAYSHIFT RN FOR Pt's ELIANE.
[2018-02-19] MEDS: BOOST PLUS FOOD-VANILLA 237 ML BOX PO SCH ×2 (08:00→17:00)
--- NOTE | 2018-02-19 08:00 | NUR ---
MS RN RECEIVED ON BED, AWAKE,ALERT,ORIENTED X4,NOT IN ANY FORM OF DISTRESS,RESPIRATIONS EVEN AND UNLABORED, NO SOB NOTED, LUNGS ARE CLEAR,ABDOMEN SOFT,POSITIVE BOWEL SOUNDS,DENIES PAIN AT THIS TIME, WILL MONITOR PATIENT'S CONDITION.
--- NOTE | 2018-02-19 09:00 | NUR ---
MS RN BREAKFAST SERVED,DUE MEDS GIVEN,TOLERATED WELL.DENIES PAIN AT THIS TIME.
[2018-02-19] MEDS: ASPIRIN 81 MG TAB.CHEW PO SCH (09:52)
[2018-02-19] MEDS: PANTOPRAZOLE 40 MG TABLET.DR PO SCH (09:52)
[2018-02-19] MEDS: FUROSEMIDE 40 MG/4 ML VIAL IV SCH ×2 (09:52→18:47)
[2018-02-19] MEDS: HYDROGEL DRESSING 90 GM TUBE TP SCH (09:54)
[2018-02-19] MEDS: ENOXAPARIN SODIUM 40 MG/0.4 ML DISP.SYRIN SQ SCH (10:06)
--- NOTE | 2018-02-19 17:02 | NUR ---
MS RN ON BED, NO DISTRESS NOTED,ALL NEEDS ATTENDED.
[2018-02-19] MEDS: DIGOXIN 0.25 MG TABLET PO SCH (18:47)
[2018-02-19] MEDS: MIRTAZAPINE 15 MG TABLET PO SCH (18:47)
--- NOTE | 2018-02-19 19:30 | NUR ---
MS RN OPENING NOTES: PATIENT IN BED, AOX4, ON O2 AT 2 LM VIA NC, BREATHING EVENLY AT RATE OF 20-22 PER MINUTE, HOB MAINTAINED ELEVATED. NOTED FINE CRACKLES OVER NICK LUNG BASES. PATIENT DENIES DYSPNEA AT THIS TIME, O2 SAT 94-95%. PATIETN ALSO DENIES CHEST PAIN. PIV OVER RAC G 18 INTACT AND PATENT TO FLUSH. PROVIDED FOR COMFORT AND SAFETY. BED IN LOWEST AND LOCKED POSITION, SIDERAILS UP X3, CALL LIGHT WITHIN REACH. WILL CONT TO MONITOR.
[2018-02-20] MEDS: ALBUTEROL FS 2.5 MG/3 ML VIAL.NEB NEB SCH ×6 (03:16→23:30)
--- NOTE | 2018-02-20 06:38 | NUR ---
MS RN CLOSING NOTES: PATIENT IN BED, AOX4, ON O2 AT 2 LPM VIA NC, BREATHING WITH EVEN EXPANSION, NOTED CRACKLES OVER LOWER LUNG NEUMANN. PATIENT WAS ALSO NOTED TO BE ORTHOPNEIC, SLEPT HIGH FOWLERS THROUGH NIGHT. O2 SAT CHECKED AT 94-98% THROUGH NIGHT. PROVIDED FOR COMFORT AND SAFETY. BED IN LOWEST AND LOCKED POSITION, SIDERAILS UP X 3, CALL LIGHT WITHIN REACH. WILL ENDORSE TO AM RN FOR ELIANE.
--- NOTE | 2018-02-20 07:30 | NUR ---
RN NOTES PATIENT ALERT AND ORIENTED X4, STILL NOTED WITH MILD SHORTNESS OF BREATH, SPO2 94% ON 2LPM VIA NC, DENIES PAIN AT THIS TIME, PATIENT HAD A SMALL HARD STOOL LAST NIGHT PER RN REPORT, GAVE PRUNE JUICE THIS AM TO HELP WITH CONSTIPATION, PATIENT'S NEEDS ATTENDED, CALL LIGHT WITHIN REACH, WILL CONTINUE TO MONITOR.
--- NOTE | 2018-02-20 07:50 | NUR ---
RN NOTES PATIENT A/OX4, BREATHING EVEN AND UNLABORED, NO SOB NOTED, C/O LEFT LEG/KNEE PAIN 04/14, OFFERED NORCO AND WILL ADMINISTER, WOUNDVAC IN PLACED WITH 55ML OUTPUT AT THIS TIME, AWAITING FOR VANCO TROUGH TO BE DRAWN, PATIENT REPORTED HE HAS HAD 2 EPISODE OF LOOSE BM SINCE THIS AM, INFORMED PATIENT WILL COLLECT THE 3RD STOOL AND WILL INFORM MD. NEEDS ATTENDED, CALL LIGHT WITHIN REACH, WILL CONTINUE TO MONITOR. Addendum: 02/20/18 at 0813 by AMANDA MUÑOZ RN CORRECTION: DISREGARD ENTRY, ENTERED ON THE WRONG PATIENT.
[2018-02-20 08:00] VITALS: BP 113/67
[2018-02-20] MEDS: PANTOPRAZOLE 40 MG TABLET.DR PO SCH (08:51)
[2018-02-20] MEDS: ASPIRIN 81 MG TAB.CHEW PO SCH (08:51)
[2018-02-20] MEDS: ENOXAPARIN SODIUM 40 MG/0.4 ML DISP.SYRIN SQ SCH (08:58)
[2018-02-20] MEDS: FUROSEMIDE 40 MG/4 ML VIAL IV SCH (09:12)
[2018-02-20 09:15] VITALS: BP 102/56
[2018-02-20] MEDS: BOOST PLUS FOOD-VANILLA 237 ML BOX PO SCH ×2 (09:28→17:46)
[2018-02-20] MEDS: HYDROGEL DRESSING 90 GM TUBE TP SCH (09:29)
[2018-02-20] MEDS: DIGOXIN 0.25 MG TABLET PO SCH (12:41)
[2018-02-20 16:00] VITALS: BP 115/57
[2018-02-20] MEDS: MIRTAZAPINE 15 MG TABLET PO SCH (17:46)
--- NOTE | 2018-02-20 19:29 | NUR ---
RN NOTES PATIENT A/OX3, BREATHING EVEN AND UNLABORED, NO SOB NOTED, DENIES PAIN AT THIS TIME, STRICT I&O, SKIN CARE RENDERED, WOUND TREATMENT RENDERED, TURNED AND REPOSITIONED EVER 2 HOURS, NEEDS ATTENDED AND MET, CALL LIGHT WITHIN REACH, WILL ENDORSE TO MOTION PICTURE CRITIC FOR ELIANE.
[2018-02-20 20:00] VITALS: BP 107/53
--- NOTE | 2018-02-20 20:00 | NUR ---
MS/RN OPENING NOTES PATIENT IN BED, HOB ELEVATED, WITH GOOD EYE CONTACT, FAMILY MEMBER WAS AT BEDSIDE, RESPIRATIONS EVEN AND UNLABORED, REPORTED SOME COUGH, ON ROUTINE BREATHING TREATMENT, OXYGEN AT 2 LITER, ALERT, ORIENTED X3, ABLE TO VERBALIZE NEEDS, SKIN WARM TO TOUCH, BOWEL SOUNDS HEARD IN 4 QUADRANTS, IV REMOVED AND REPLACED ON RIGHT HAND. ABLE TO EAT DINNER WITH ASSIST REPORTED, RECEIVED ENDORSEMENT FROM AM RN FOR ELIANE.BED IN LOCK POSITION, CALL LIGHTS WITHIN REACH, WILL CONTINUE TO PROVIDE CARE.
[2018-02-20 20:32] VITALS: BP 107/53
[2018-02-21] VITALS (7 sets, daily range): BP systolic 94–106; BP diastolic 52–67
[2018-02-21] MEDS: ALBUTEROL FS 2.5 MG/3 ML VIAL.NEB NEB SCH ×4 (03:30→14:36)
--- NOTE | 2018-02-21 06:45 | NUR ---
MS/RN CLOSING NOTES PATIENT IN BED, RESTING COMFORTABLY IN BED, ABLE TO SLEEP DURING THE NIGHT, ASSISTED FOR COMFORT, KEEP COMFORTABLE, SKIN WARM TO TOUCH, ASSIST WITH NEEDS, ALERT X3, ABLE TO VERBALIZE NEEDS, BED IN LOCK POSITION, CALL LIGHTS WITHIN REACH WILL ENDORSE TO AM RN FOR ELIANE.
--- NOTE | 2018-02-21 07:12 | NUR ---
RN NOTES: PATIENT RESTING IN BED. NONLABORED BREATHING NOTED ON 2 L NASAL CANNULA. IV SITE ON RIGHT WRIST PATENT AND INTACT. PATIENT DENYING PAIN AND IS AOX4. BED IN LOWEST EUSEBIO POSITION. CALL LIGHT WITHIN REACH. WILL CONTINUE TO MONITOR
[2018-02-21] MEDS: PANTOPRAZOLE 40 MG TABLET.DR PO SCH (08:20)
[2018-02-21 08:51] LABS: BASOPHILS % (AUTO) 0.4 % (0.0-2.0); EOSINOPHILS % (AUTO) 5.2 % (0.0-6.0); HEMATOCRIT 29 % (39-51); HEMOGLOBIN 9.3 g/dL (13.5-17.5); LYMPHOCYTES % (AUTO) 25.5 % (20.0-44.0); MEAN CORPUSCULAR HGB CONC 32 g/dl (31.0-36.0); MEAN CORPUSCULAR VOLUME 97 fL (80-96); MONOCYTES # (AUTO) 0.4 /CMM (0.1-1.30); MONOCYTES % (AUTO) 9.6 % (2.0-12.0); NEUTROPHILS # (AUTO) 2.4 /CMM (1.8-8.9); NEUTROPHILS % (AUTO) 59.3 % (43.0-81.0); PLATELET COUNT (AUTO) 190 /CMM (150-450); RDW COEFFICIENT OF VARIATION 19.2 (11.5-15.0); RED BLOOD CELL COUNT(AUTO) 3.01 MIL/uL (4.5-6.0)
[2018-02-21] MEDS: BOOST PLUS FOOD-VANILLA 237 ML BOX PO SCH ×2 (09:00→17:19)
[2018-02-21] MEDS ORDERED: FUROSEMIDE 80 MG TABLET PO SCH (09:00)
[2018-02-21 09:10] LABS: ALANINE AMINOTRANSFERASE 30 U/L (12-78); ALBUMIN 2.6 g/dL (3.4-5.0); ALKALINE PHOSPHATASE 102 U/L (46-116); ASPARTATE AMINOTRANSFERASE 32 U/L (15-37); BILIRUBIN,TOTAL 0.6 mg/dL (0.2-1.0); CALCIUM, SERUM 8.2 mg/dL (8.5-10.1); CHLORIDE 103 mmol/L (98-107); CREATININE 0.7 mg/dL (0.6-1.3); GLUCOSE 79 mg/dL (74-106); MAGNESIUM 2.7 mg/dL (1.8-2.4); PHOSPHORUS 2.7 mg/dL (2.5-4.9); POTASSIUM 4.1 mmol/L (3.5-5.1); SODIUM SERUM 142 mmol/L (136-145); TOTAL PROTEIN, SERUM 6.8 g/dL (6.4-8.2); UREA NITROGEN, BLOOD 16 mg/dL (7-18)
[2018-02-21 09:25] LABS: CARBON DIOXIDE 44 mmol/L (21-32)
[2018-02-21] MEDS: HYDROGEL DRESSING 90 GM TUBE TP SCH (09:53)
[2018-02-21] MEDS: ENOXAPARIN SODIUM 40 MG/0.4 ML DISP.SYRIN SQ SCH (09:56)
[2018-02-21] MEDS: ASPIRIN 81 MG TAB.CHEW PO SCH (09:59)
[2018-02-21] MEDS: DIGOXIN 0.25 MG TABLET PO SCH (13:39)
[2018-02-21] MEDS ORDERED: ALBUT2 NEB (14:38)
[2018-02-21] MEDS ORDERED: POTA10CA43 PO (14:38)
[2018-02-21] MEDS ORDERED: Digoxin PO (14:38)
--- NOTE | 2018-02-21 14:59 | NUR ---
RN NOTES: DR SUSAN SOTO AWARE OF LABS TODAY
--- NOTE | 2018-02-21 17:20 | NUR ---
RN NOTES; PATIENT REFUSING LASIX. BENEFITS AND RISKS EXPLAINED AT LENGTH
[2018-02-21] MEDS: MIRTAZAPINE 15 MG TABLET PO SCH (18:00)
--- NOTE | 2018-02-21 19:10 | NUR ---
PATIENT EDUCATED ON PRECRIPTION MEDICATIONS. DISCUSSED SIDE AND ADVERSE AFFECTS WELL DOSAGES. PATIENT AND VERBALIZED UNDERSTANDING. PRESCRIPTION GIVEN TO PATIENT. EDUCATED TO FOLLOW UP WITH MD IN [address] DIAMOND ORDERS
--- NOTE | 2018-02-21 19:26 | NUR ---
RN NOTES: PATIENT REFUSING REMERON. BENEFITS AND RISKS EXPLAINED. PATIENT STATES HE WANTS TO TAKE IT AT HOME. AT BEDSIDE. DISCUSSED EXISTCARE INSTRUCTIONS WELL PRESCRIBED MEDICATIONS. ALL BELONGINGS WITH PATIENT. CASE MANAGEMENT ARRANGED TRANSPORTATION THAT IS DUE TO COME AT 2030. IV SITES PATENT AND FUAD- REGLA RN TO REMOVE. DISCUSSED ALL PRESCRIPTION WITH PATIENT AND . PATIENT AFEBRILE. 98% ON ROOM AIR. PATIENT STATES THAT HE PREFERS TO BE ON 2 L NASAL CANNULA AND STATES THAT HE HAS HIS OXYGEN CONCENTRATOR AT HOME. WOUND CARE DONE DURING SHIFT. PATIENT REFUSED PICTURES. NO CHANGES IN WOUNDS. ENDORSED TO NEXT SHIFT. AFEBRILE DURING SHIFT, STABLE, AND DENYING CHEST PAIN. DURING SHIFT, PATIENT ALSO REFUSED TO AMBULATE TO BATHROOM, STATED THAT HE WANTS TO REST TODAY
--- NOTE | 2018-02-21 20:28 | NUR ---
VIA AMBULANCE DISCHARGED TO HOME, AT HIS SIDE, HE IS ALERT AND ORIENTATED X4 SPPECH CLEAR LUNGS VIS AUSCULTATION CLEAR BUT DIMINISHED 02 ON VIA N/C, NO NOTED SOB, HE IS SMILING AND APPEARS COMFORTABLE. HEPLOCKS REMOVED PRIOR BEING DISCHARGED
== END 2018-02-21 20:30 | disposition home health service (06) | DRG 622 ==
LOC: ER 12:58 → TELE1 14:14 → MEDSG1 02-18 09:15 → MED 02-19 03:08
PROVIDERS: ADMIT Internal Medicine; ATTEND Internal Medicine
PROC: 0JB90ZZ Excision of Buttock Subcutaneous Tissue and Fascia, Open Approach (ICD-10-PCS; principal; 2018-02-18)
DX: E78.5 Hyperlipidemia, unspecified (principal); J96.21 Acute and chronic respiratory failure with hypoxia; N17.9 Acute kidney failure, unspecified; I50.33 Acute on chronic diastolic (congestive) heart failure; E44.0 Moderate protein-calorie malnutrition; L89.323 Pressure ulcer of left buttock, stage 3; R64 Cachexia; I27.81 Cor pulmonale (chronic); I13.0 Hypertensive heart and chronic kidney disease with heart failure and stage 1 through stage 4 chronic kidney disease, or unspecified chronic kidney disease; J96.22 Acute and chronic respiratory failure with hypercapnia; I48.2 Chronic atrial fibrillation; J84.10 Pulmonary fibrosis, unspecified; I48.91 Unspecified atrial fibrillation; J44.9 Chronic obstructive pulmonary disease, unspecified; I25.10 Atherosclerotic heart disease of native coronary artery without angina pectoris; Z79.82 Long term (current) use of aspirin; N18.9 Chronic kidney disease, unspecified; Z79.899 Other long term (current) drug therapy; Z95.1 Presence of aortocoronary bypass graft; Z87.891 Personal history of nicotine dependence; Z77.090 Contact with and (suspected) exposure to asbestos; I73.9 Peripheral vascular disease, unspecified
CPT/HCPCS: 36415; 36600; 71045-TC; 80048-TC; 80053-TC; 80076-TC; 82803-TC; 83735-TC; 83880; 84100-TC; 84484-TC; 85025-TC; 85730-TC; 87081-TC; 94799-TC; A4606; A6248; J1160; J1650; J1940; J3490; Z7610

== ENCOUNTER 2018-03-17 17:54 | Inpatient (IN) | payer OTHER ==
[~2018-03-17] VITALS: Ht 177.8 cm; Wt 49.0 kg
[~2018-03-17 17:54] MED LIST changes: +ALBUT2 NEB; +Digoxin PO; +POTA10CA43 PO
--- NOTE | 2018-03-17 18:00 | NUR ---
ELPIDIO FROM HOME DT GENERALIZED WEAKNESS AND LOW APETITE X 3 DAYS.PATIENT RECEIVED AWAKE AND ALERT. APPEARS IN NO DISTRESS. PATIENT ON O2 VIA NC #2LPM. SATING WELL ON ROOM AIR. PATIENT IS AFEBRILE. VSS. CONNECTED PT TO TELE MONITOR. PENDING MD DOLL
[2018-03-17 18:57] LABS: CALCIUM, SERUM 9.2 mg/dL (8.5-10.1); CREATININE 0.7 mg/dL (0.6-1.3); GLUCOSE 81 mg/dL (74-106); POTASSIUM 4.2 mmol/L (3.5-5.1); UREA NITROGEN, BLOOD 19 mg/dL (7-18)
[2018-03-17 18:58] LABS: BASOPHILS % (AUTO) 0.5 % (0.0-2.0); EOSINOPHILS % (AUTO) 7.7 % (0.0-6.0); HEMATOCRIT 30 % (39-51); HEMOGLOBIN 9.5 g/dL (13.5-17.5); LYMPHOCYTES # (AUTO) 1.1 /CMM (0.8-4.8); LYMPHOCYTES % (AUTO) 23.5 % (20.0-44.0); MEAN CORPUSCULAR HGB CONC 31 g/dl (31.0-36.0); MEAN CORPUSCULAR VOLUME 96 fL (80-96); MONOCYTES # (AUTO) 0.3 /CMM (0.1-1.30); MONOCYTES % (AUTO) 7.1 % (2.0-12.0); NEUTROPHILS # (AUTO) 2.9 /CMM (1.8-8.9); NEUTROPHILS % (AUTO) 61.2 % (43.0-81.0); PLATELET COUNT (AUTO) 162 /CMM (150-450); RDW COEFFICIENT OF VARIATION 16.7 (11.5-15.0); RED BLOOD CELL COUNT(AUTO) 3.15 MIL/uL (4.5-6.0); WHITE BLOOD COUNT (AUTO) 4.8 K/uL (4.3-11.0)
[2018-03-17 19:04] LABS: TROPONIN I 0.017 ng/mL (0.00-0.056)
[2018-03-17 19:12] LABS: ALANINE AMINOTRANSFERASE 26 U/L (12-78); ALBUMIN 3.5 g/dL (3.4-5.0); ALKALINE PHOSPHATASE 119 U/L (46-116); ASPARTATE AMINOTRANSFERASE 25 U/L (15-37); B-TYPE NATRIURETIC PEPTIDE 5281 PG/ML (0-125); BILIRUBIN,DIRECT 0.2 mg/dL (0.0-0.2); BILIRUBIN,TOTAL 0.4 mg/dL (0.2-1.0); TOTAL PROTEIN, SERUM 8.4 g/dL (6.4-8.2)
--- NOTE | 2018-03-17 19:12 | NUR ---
RECEIVED REPORT FROM REID GONZALEZ FOR ELIANE.
--- NOTE | 2018-03-17 19:14 | NUR ---
PT NOTED EATING PIZZA BROUGHT BY FAMILY MEMBER. NO S/S DISTRESS NOTED IN PT. FAMILY MEMBER BEDSIDE WITH PT. MADE AWARE.
[2018-03-17 19:28] LABS: CHLORIDE 91 mmol/L (98-107); SODIUM SERUM 146 mmol/L (136-145)
[2018-03-17 19:29] LABS: CARBON DIOXIDE 48 mmol/L (21-32)
--- NOTE | 2018-03-17 20:19 | NUR ---
PER ADMITTING DEVOIL, RECEIVED AUTH TO ADMIT
--- NOTE | 2018-03-17 20:20 | NUR ---
CALLED RN SUP FOR TELE BED.
--- NOTE | 2018-03-17 20:22 | NUR ---
[facility] DR SHORT, AGUSTINA REACHED.
[2018-03-17] MEDS ORDERED: Z GUARD REMEDY 2 OZ OINT TP PRN (21:00)
[2018-03-17] MEDS ORDERED: MAG HYDROX/AL HYDROX/SIMETH 30 ML UDC PO PRN (21:00)
[2018-03-17] MEDS ORDERED: ONDANSETRON HCL/PF 4 MG/2 ML VIAL IVP PRN (21:00)
[2018-03-17] MEDS ORDERED: ZOLPIDEM TARTRATE 5 MG TABLET PO PRN (21:00)
[2018-03-17] MEDS ORDERED: MAGNESIUM HYDROXIDE 30 ML UDC PO PRN (21:00)
[2018-03-17] MEDS ORDERED: ACETAMINOPHEN 325 MG TABLET PO PRN (21:00)
[2018-03-17] MEDS ORDERED: HYDROCODONE/APAP 5/325MG 1 EACH TABLET PO PRN (21:00)
[2018-03-17] MEDS ORDERED: ALBUTEROL FS 2.5 MG/0.5 ML VIAL.NEB NEB PRN (21:00)
[2018-03-17] MEDS ORDERED: IPRATROPIUM NEB FS 0.5 MG/2.5 ML AMPUL.NEB NEB PRN (21:00)
--- NOTE | 2018-03-17 21:04 | NUR ---
PT ASSIGNED TELE [phone]
--- NOTE | 2018-03-17 21:09 | NUR ---
report given to GIRISH BUSH FOR ELIANE.
--- NOTE | 2018-03-17 21:25 | NUR ---
NEW ADMISSION OPENING NOTES RECEIVED PT FROM ER VIA [facility] ACCOMPANIED BY STAFF & FAMILY. A & O X 4, NO SOB, NO C/O PAIN NOTED, NO ACUTE DISTRESS NOTED. HAS GENERALIZED WEAKNESS, ABLE TO WALK WITH ASSISTANCE ONLY. ON TELE MONITORING, HAS LEFT CHEST WALL PACEMAKER. ABLE TO USE BSC/URINAL WHEN NEEDED. O2 @ 2LPM FOR BREATHING COMFORT. ON BED REST, BODY CHECK DONE, PHOTOS PLACED IN THE CHART. IV ACCESS TO LAC, INTACT PATENT. ALL BELONGINGS ACCOUNTED FOR & SIGNED BY THE & TIRE BLADDER MAKER. ALL NEW ORDERS REVIEWED WITH MD, NOTED & CARRIED OUT. BED IN LOW LOCKED POSITION, CALL LIGHT WITHIN REACH. REMINDED PT TO CALL FOR HELP WITHOUT GETTING OUT OF BED BY HIMSELF FOR SAFETY, PT VERBALIZED UNDERSTANDING. WILL CONTINUE TO MONITOR VERY CLOSELY FOR ELIANE.
[2018-03-17 21:30] VITALS: BP 118/55
[2018-03-17 22:00] VITALS: BP 102/50
[2018-03-17 22:02] VITALS: BP 102/56
[2018-03-17 22:04] VITALS: BP 102/54
[2018-03-17] MEDS: IV NS 0.9% 1,000 ML IV PRN (22:08)
[2018-03-17] MEDS: methylPREDNISolone SOD SUCC 40 MG/ML VIAL IV SCH (22:09)
[2018-03-17] MEDS: ENOXAPARIN SODIUM 40 MG/0.4 ML DISP.SYRIN SQ SCH (22:11)
[2018-03-18] VITALS (8 sets, daily range): BP systolic 96–115; BP diastolic 57–80
--- NOTE | 2018-03-18 01:00 | NUR ---
HYDRAULICS ENGINEER NOTE PT SLEEPING INTERMITTENTLY, NO ELIANE NOTED. ON TELE MONITORING WITH V PACING @ 89/MIN. NO CHEST PAIN, NO SOB, NO ACUTE DISTRESS NOTED. FREQUENT VISUAL CHECKS BEING DONE.
--- NOTE | 2018-03-18 04:25 | NUR ---
STRATEGIC MANAGER NOTE EKG WAS DONE, SHOWS ABNORMAL RESULTS, V PACING. PT HAS HX OF A-FIB, CHF, PACEMAKER. NO C/O CHEST PAIN, NO SOB, NO OTHER COMPLICATIONS NOTED. PT IS RELAXED, SLEEPING @ THIS TIME. MADE AWARE ABOUT EKG RESULTS WITH NO NEW ORDERS @ THIS TIME. WILL CONTINUE TO MONITOR THE PT CLOSELY FOR ANY ELIANE.
[2018-03-18] MEDS: methylPREDNISolone SOD SUCC 40 MG/ML VIAL IV SCH ×3 (05:08→23:11)
--- NOTE | 2018-03-18 06:36 | NUR ---
ACCOUNTS MANAGER CLOSING NOTES PT SLEPT INTERMITTENTLY @ NIGHT. A & O X 4, NO SOB, NO C/O PAIN NOTED, NO ACUTE DISTRESS NOTED. HAS GENERALIZED WEAKNESS, ABLE TO WALK WITH ASSISTANCE ONLY. ON TELE MONITORING WITH V PACING 79. O2 @ 2LPM FOR BREATHING COMFORT. HOB ELEVATED. ON BED REST, IV ACCESS TO LAC, INTACT PATENT INFUSING WITH IFV.. BED IN LOW LOCKED POSITION, CALL LIGHT WITHIN REACH. WILL ENDORSE TO AM RN FOR CONTINUITY OF CARE..
[2018-03-18 06:38] LABS: BASOPHILS % (AUTO) 0.2 % (0.0-2.0); EOSINOPHILS % (AUTO) 0.2 % (0.0-6.0); HEMATOCRIT 28 % (39-51); HEMOGLOBIN 9.3 g/dL (13.5-17.5); LYMPHOCYTES # (AUTO) 0.7 /CMM (0.8-4.8); MEAN CORPUSCULAR HGB CONC 33 g/dl (31.0-36.0); MEAN CORPUSCULAR VOLUME 96 fL (80-96); MONOCYTES % (AUTO) 0.7 % (2.0-12.0); NEUTROPHILS # (AUTO) 3.1 /CMM (1.8-8.9); NEUTROPHILS % (AUTO) 80.9 % (43.0-81.0); PLATELET COUNT (AUTO) 149 /CMM (150-450); RDW COEFFICIENT OF VARIATION 17.1 (11.5-15.0); RED BLOOD CELL COUNT(AUTO) 2.95 MIL/uL (4.5-6.0); WHITE BLOOD COUNT (AUTO) 3.8 K/uL (4.3-11.0)
[2018-03-18 07:02] LABS: CHOLESTEROL 135 mg/dL (<200); HDL CHOLESTEROL 67 mg/dL (40-60); LDL 65 mg/dL (0-99); THYROID STIMULATING HORMONE 2.741 uIU/mL (0.358-3.74); TRIGLYCERIDES 38 mg/dL (30-150)
[2018-03-18 07:11] LABS: CALCIUM, SERUM 8.6 mg/dL (8.5-10.1); CHLORIDE 98 mmol/L (98-107); CREATININE 0.8 mg/dL (0.6-1.3); GLUCOSE 165 mg/dL (74-106); PHOSPHORUS 3.4 mg/dL (2.5-4.9); POTASSIUM 4.9 mmol/L (3.5-5.1); SODIUM SERUM 141 mmol/L (136-145); UREA NITROGEN, BLOOD 18 mg/dL (7-18)
[2018-03-18 07:20] LABS: CARBON DIOXIDE 44 mmol/L (21-32)
[2018-03-18] MEDS ORDERED: LEVO50TA PO (07:30)
--- NOTE | 2018-03-18 07:48 | NUR ---
BRIDGE OPERATOR SLIP NOTES PATIENT RECEIVED RESTING INSIDE ROOM. AWAKE, ALERT AND ORIENTED. VERBALLY RESPONSIVE AND RESPONDS TO VERBAL AND TACTILE STIMULI. BREATHING EVEN AND UNLABORED. ON O2 AT 2L/MIN VIA NC. PATIENT CALM AND RELAXED. ABLE TO MAKE NEEDS KNOWN AND FOLLOW SIMPLE INSTRUCTIONS. PATIENT DENIES ANY PAIN OR DISCOMFORT. IV SITE INTACT, NO SWELLING OR BLEEDING NOTED AT THIS TIME. RECEIVED CALL FROM LAB REGARDING PATIENT CO2 CRITICAL HIGH LEVEL OF 44, PATIENT WITH CO2 LEVEL OF 48 ON 03/17/18. PATIENT DENIES SOB OR ACUTE DISTRESS AT THIS TIME. NO CHANGES IN LOC NOTED. MD AWARE. WILL CONTINUE TO MONITOR. BED LOCKED AND IN LOW POSITION. BILATERAL UPPER SIDE RAILS UP AND LOCKED. CALL LIGHT WITHIN EASY REACH
[2018-03-18 07:50] LABS: B-TYPE NATRIURETIC PEPTIDE 5656 PG/ML (0-125)
[2018-03-18] MEDS: LEVOTHYROXINE SODIUM 50 MCG TABLET PO SCH (08:44)
[2018-03-18] MEDS: ASPIRIN 81 MG TAB.CHEW PO SCH (08:44)
[2018-03-18] MEDS ORDERED: DIGOXIN 0.25 MG TABLET PO SCH (09:00)
[2018-03-18] MEDS: IV NS 0.9% 1,000 ML IV PRN (12:26)
[2018-03-18] MEDS ORDERED: DEXTROSE 50%-WATER 50 ML DISP.SYRIN IV PRN (13:30)
--- NOTE | 2018-03-18 16:10 | NUR ---
MS RN NOTES PATIENT REPORTED THAT HE HAS BEEN HAVING HAZINESS ON HIS VISION THATS BEEN GOING ON X 1 MONTH. NO CHANGES IN LOC NOTED. REID MADDEN/SUSAN SOTO NP MADE AWARE. WILL CONTINUE TO MONITOR
[2018-03-18] MEDS: MIRTAZAPINE 15 MG TABLET PO SCH (17:29)
[2018-03-18] MEDS: BLOOD SUGAR DIAGNOSTIC 1 EACH STRIP IN SCH ×2 (17:29→22:38)
--- NOTE | 2018-03-18 18:44 | NUR ---
MS RN NOTES PATIENT RESTING INSIDE ROOM, AWAKE, ALERT AND ORIENTED. VERBALLY RESPONSIVE AND RESPONDS TO VERBAL AND TACTILE STIMULI. PATIENT BREATHING EVEN AND UNLABORED. O2 AT 2L/MIN VIA NC. NO SOB OR ACUTE DISTRESS NOTED AT THIS TIME. AT BEDSIDE. PATIENT CALM AND RELAXED. NO CHANGES IN LOC NOTED AT THIS TIME. IV SITE INTACT AND PATENT. WILL ENDORSE TO INCOMING SHIFT FOR ELIANE. BED LOCKED AND IN LOW POSITION. BILATERAL UPPER SIDE RAILS UP AND LOCKED. ALL DUE MEDICATIONS GIVEN AND TOLERATED WELL. CALL LIGHT WITHIN EASY REACH
[2018-03-18] MEDS: INSULIN REGULAR, HUMAN 100 UNIT/ML 3 ML VIAL SQ PRN ×2 (18:59→23:15)
--- NOTE | 2018-03-18 19:30 | NUR ---
RN MS NOTES RECEIVED PATIENT IN BED AWAKE ALERT AND VERBALLY RESPONSIVE, BREATHING EVEN AND UNLABORED ON 02 2 LITERS. NO COMPLAINTS OF PAIN OR DISCOMFORT, IV SITE TO LEFT AC INTACT AND PATENT, NO REDNESS NO INFILTRATION NOTED. IVF RUNNING ORDERED. ORIENTED TO STAFF, ROOM AND CALL LIGHT, CALL LIGHT KEPT WITHIN REACH, ALL NEEDS ATTENDED, SAFETY MEASURES IN PLACE, WILL CONTINUE TO MONITOR.
--- NOTE | 2018-03-18 20:00 | NUR ---
RN MS NOTES REPORT GIVEN TO MEDINA MATHEWS , WHO WILL CONTINUE PLAN OF CARE, PATIENT REMAINS COMFORTABLE AT THIS TIME.
[2018-03-18] MEDS: ENOXAPARIN SODIUM 40 MG/0.4 ML DISP.SYRIN SQ SCH (23:15)
[2018-03-19] MEDS: IV NS 0.9% 1,000 ML IV PRN ×2 (02:29→18:39)
[2018-03-19] MEDS: methylPREDNISolone SOD SUCC 40 MG/ML VIAL IV SCH ×3 (05:12→21:33)
[2018-03-19 06:21] LABS: BASOPHILS % (AUTO) 0.2 % (0.0-2.0); HEMATOCRIT 27 % (39-51); HEMOGLOBIN 8.9 g/dL (13.5-17.5); LYMPHOCYTES # (AUTO) 0.7 /CMM (0.8-4.8); LYMPHOCYTES % (AUTO) 14.9 % (20.0-44.0); MEAN CORPUSCULAR HGB CONC 33 g/dl (31.0-36.0); MEAN CORPUSCULAR VOLUME 97 fL (80-96); MONOCYTES # (AUTO) 0.1 /CMM (0.1-1.30); MONOCYTES % (AUTO) 1.8 % (2.0-12.0); NEUTROPHILS % (AUTO) 83.1 % (43.0-81.0); PLATELET COUNT (AUTO) 143 /CMM (150-450); RDW COEFFICIENT OF VARIATION 16.7 (11.5-15.0); RED BLOOD CELL COUNT(AUTO) 2.81 MIL/uL (4.5-6.0); WHITE BLOOD COUNT (AUTO) 4.8 K/uL (4.3-11.0)
[2018-03-19] MEDS: BLOOD SUGAR DIAGNOSTIC 1 EACH STRIP IN SCH ×4 (06:56→21:33)
[2018-03-19] MEDS: INSULIN REGULAR, HUMAN 100 UNIT/ML 3 ML VIAL SQ PRN ×4 (06:58→21:34)
[2018-03-19 06:59] LABS: CALCIUM, SERUM 8.3 mg/dL (8.5-10.1); CHLORIDE 100 mmol/L (98-107); CREATININE 0.8 mg/dL (0.6-1.3); GLUCOSE 141 mg/dL (74-106); MAGNESIUM 1.9 mg/dL (1.8-2.4); PHOSPHORUS 3.2 mg/dL (2.5-4.9); POTASSIUM 4.7 mmol/L (3.5-5.1); SODIUM SERUM 141 mmol/L (136-145); UREA NITROGEN, BLOOD 20 mg/dL (7-18)
--- NOTE | 2018-03-19 07:28 | NUR ---
MS RN NOTES PATIENT RECEIVED RESTING INSIDE ROOM. AWAKE, ALERT AND ORIENTED. VERBALLY RESPONSIVE AND RESPONDS TO VERBAL AND TACTILE STIMULI. ABLE TO MAKE NEEDS KNOWN AND FOLLOW SIMPLE INSTRUCTIONS. NO SOB OR ACUTE DISTRESS NOTED AT THIS TIME. PATIENT AFEBRILE, SKIN DRY AND WARM TO TOUCH. NO CHANGES IN LOC NOTED AT THIS TIME. IV SITE INTACT AND PATENT, NO SWELLING OR BLEEDING AT THIS TIME. WILL CONTINUE TO MONITOR. BED LOCKED AND IN LOW POSITION. BILATERAL UPPER SIDE RAILS UP AND LOCKED. CALL LIGHT WITHIN EASY REACH
[2018-03-19 07:42] LABS: CARBON DIOXIDE 41 mmol/L (21-32)
[2018-03-19 08:00] VITALS: BP_SYST 135; BP_SYST 96; BP_DIAS 54; BP_DIAS 87
[2018-03-19] MEDS: ASPIRIN 81 MG TAB.CHEW PO SCH (08:32)
[2018-03-19] MEDS: LEVOTHYROXINE SODIUM 50 MCG TABLET PO SCH (08:32)
[2018-03-19 11:09] VITALS: BP_SYST 106; BP_SYST 108; BP_DIAS 53; BP_DIAS 54; BP_DIAS 67
[2018-03-19 16:00] VITALS: BP 122/55
[2018-03-19] MEDS: MIRTAZAPINE 15 MG TABLET PO SCH (17:55)
--- NOTE | 2018-03-19 19:10 | NUR ---
MS RN NOTES PATIENT RESTING INSIDE ROOM. AWAKE, ALERT AND ORIENTED. VERBALLY RESPONSIVE AND RESPONDS TO VERBAL AND TACTILE STIMULI. BREATHING EVEN AND UNLABORED. NO SOB OR ACUTE DISTRESS NOTED AT THIS TIME. PATIENT AFEBRILE, SKIN DRY AND WARM TO TOUCH. IV SITE INTACT AND PATENT, NO BLEEDING OR SWELLING NOTED. WILL ENDORSE TO INCOMING SHIFT FOR ELIANE. BED LOCKED AND IN LOW POSITION. BILATERAL UPPER SIDE RAILS UP AND LOCKED. CALL LIGHT WITHIN EASY REACH
--- NOTE | 2018-03-19 19:30 | NUR ---
RN NOTE; RECEIVED PT IN BED AWAKE AND ALERT. BREATHING EVENLY. NO SOB. NAD. SKIN WARM AND DRY. W/ C/O PAIN OR DISCOMFORT. HOB ELEVATED. NEEDS ATTENDED. CALL LIGHT WITHIN REACH. WILL CONT TO MONITOR ,
[2018-03-19 20:00] VITALS: BP 106/60
[2018-03-19 20:42] VITALS: BP 106/60
[2018-03-19] MEDS: ENOXAPARIN SODIUM 40 MG/0.4 ML DISP.SYRIN SQ SCH (21:35)
[2018-03-20] MEDS: methylPREDNISolone SOD SUCC 40 MG/ML VIAL IV SCH ×2 (05:01→12:39)
[2018-03-20] MEDS: IV NS 0.9% 1,000 ML IV PRN (05:04)
--- NOTE | 2018-03-20 06:35 | NUR ---
PT IN BED RESTING COMFORTABLY IN BED .BREATHING EVENLY. NO ACUTE EVENT OVER THE NIGHT. ON ONGOING IVF HYDRATION KERRIE WELL. NEEDS ATTENDED . BED LOW LOCKED. CALL LIGHT WITHIN REACH . WILL CONT TO MONITOR AND WILL ENDORSE TO AM SHIFT FOR ELIANE.
[2018-03-20] MEDS: BLOOD SUGAR DIAGNOSTIC 1 EACH STRIP IN SCH ×3 (07:26→17:09)
--- NOTE | 2018-03-20 07:48 | NUR ---
MS RN OPENING NOTE PATIENT IS ALERT AND ORIENTED X4. 2L OF OXYGEN VIA NASAL CANNULA TOLERATING. NO PAIN AT THIS TIME. NO SOB OR DISTRESS NOTED. CALL LIGHT WITHIN REACH. SAFETY MEASURES IMPLEMENTED AND ABLE TO COMMUNICATE NEEDS. IV INTACT AND PATENT NO REDNESS OR SWELLING NOTED WITH IV FLUIDS RUNNING AT THIS TIME AT 75 ML/HR TOLERATING WELL. BLOOD SUGAR TO BE CHECKED THROUGHOUT SHIFT. PENDING PHYSICAL THERAPY CONSULT, PULMONARY AND CARDIO CONSULT PENDING. WILL CONTINUE TO MONITOR THROUGHOUT SHIFT.
--- NOTE | 2018-03-20 07:56 | NUR ---
WOUND CARE CONSULT WOUND CARE RECEIVED CONSULT FOR MULTIPLE SKIN ISSUES. WOUND CARE WILL DEFER CONSULT AND ALL TREATMENT PLANS TO SURGICAL TEAM THEY ARE CURRENTLY FOLLOWING. PATIENT WITH BARRERA AT 18, ALL PRESSURE ULCER PREVENTION MEASURES NOTED TO BE IN PLACE.
[2018-03-20 08:00] VITALS: BP 131/71
[2018-03-20] MEDS: LEVOTHYROXINE SODIUM 50 MCG TABLET PO SCH (08:02)
[2018-03-20] MEDS: ASPIRIN 81 MG TAB.CHEW PO SCH (08:02)
[2018-03-20] MEDS: INSULIN REGULAR, HUMAN 100 UNIT/ML 3 ML VIAL SQ PRN ×2 (11:56→17:10)
--- NOTE | 2018-03-20 14:04 | NUR ---
MS RN NOTE REPORT GIVEN TO REID GARCIA DRAIN TILER AT [facility] . INFORMED RN DRAIN TILER ABOUT PATIENT CINDER BLOCK MASON TIME AT 6 PM.
[2018-03-20 16:00] VITALS: BP 113/65
[2018-03-20] MEDS: MIRTAZAPINE 15 MG TABLET PO SCH (17:09)
--- NOTE | 2018-03-20 18:10 | NUR ---
CONCRETE POLISHER NOTE PATIENT DISCHARGED TO [facility] VIA AMBULANCE WITH TWO RN RENAL. REPORT GIVEN TO REID GARCIA PASTORAL ASSISTANT. ALL NURSING CARE NEEDS ATTENDED TO NEEDED. ALL DUE MEDICATIONS GIVEN ORDERED. ALL BELONGINGS ACCOUNTED FOR AND TAKEN WITH PATIENT. ALL DISCHARGE INSTRUCTIONS GIVEN TO PATIENT AT BEDSIDE AND TO RN PASTORAL ASSISTANT AT SNF, BOTH ABLE TO RETURN DISCHARGE INSTRUCTIONS. WOUND PICTURES DOCUMENTED. IV REMOVED, SKIN INTACT.
== END 2018-03-20 18:13 | DRG 641 ==
LOC: ER 17:55 → TELE 21:08 → MED 03-18 12:56
DX: E86.0 Dehydration (principal); L89.159 Pressure ulcer of sacral region, unspecified stage; L89.319 Pressure ulcer of right buttock, unspecified stage; E44.0 Moderate protein-calorie malnutrition; E87.3 Alkalosis; D69.2 Other nonthrombocytopenic purpura; R64 Cachexia; L89.329 Pressure ulcer of left buttock, unspecified stage; E11.65 Type 2 diabetes mellitus with hyperglycemia; I50.32 Chronic diastolic (congestive) heart failure; I48.91 Unspecified atrial fibrillation; I25.10 Atherosclerotic heart disease of native coronary artery without angina pectoris; Z79.82 Long term (current) use of aspirin; Z79.899 Other long term (current) drug therapy; J84.10 Pulmonary fibrosis, unspecified; J44.9 Chronic obstructive pulmonary disease, unspecified; Z99.81 Dependence on supplemental oxygen; Z95.1 Presence of aortocoronary bypass graft; Z87.891 Personal history of nicotine dependence; Z77.090 Contact with and (suspected) exposure to asbestos; T38.0X5A Adverse effect of glucocorticoids and synthetic analogues, initial encounter; Y92.129 Unspecified place in nursing home as the place of occurrence of the external cause; D63.8 Anemia in other chronic diseases classified elsewhere; L89.629 Pressure ulcer of left heel, unspecified stage
CPT/HCPCS: 36415; 71045-TC; 80048-TC; 80061-TC; 80076-TC; 80162-TC; 82962-TC; 83735-TC; 83880; 84100-TC; 84134-TC; 84443-TC; 84484-TC; 85025-TC; 87081-TC; 97116-TC; 97530-TC; A4606; J1650; J1815; J2920; J7030; Z7610

== ENCOUNTER 2018-04-03 17:15 | Inpatient (IN) | payer OTHER ==
[~2018-04-03] VITALS: Ht 177.8 cm; Wt 54.0 kg
[~2018-04-03 17:15] MED LIST changes: -FURO-145 PO; +LEVO50TA PO
--- NOTE | 2018-04-03 17:20 | NUR ---
BIBPA FOR TACHYCARDIA 134, DENIES CP AT THIS TIME. A/OX 3, BREATHING EVEN AND UNLABORED. NO SOB, NAD. SAFETY AND COMFORT MEASURSES IN PLACE. AWAITING MD ORDERS.
--- NOTE | 2018-04-03 17:45 | NUR ---
NEW IV STARTED ON RFA, 18G. BLOOD DRAWN AND SENT TO LAB.
[2018-04-03] MEDS ORDERED: DILTIAZEM HCL 25 MG IV ONE (17:46)
--- NOTE | 2018-04-03 17:55 | NUR ---
PATIENT MEDICATED PER MD ORDERS, TOLERATED WELL. NO COMPLICATIONS NOTED. WILL CONTINUE TO MONITOR.
[2018-04-03] MEDS ORDERED: DILTIAZEM HCL 50 MG IV IV ONE (18:00)
[2018-04-03] MEDS ORDERED: ASCO-340 PO (18:05)
[2018-04-03] MEDS ORDERED: FURO20TA4 PO (18:05)
[2018-04-03] MEDS ORDERED: ACET-868 PO (18:05)
[2018-04-03] MEDS ORDERED: CRAN425C6 PO (18:05)
[2018-04-03] MEDS ORDERED: MULT-213 PO (18:05)
[2018-04-03] MEDS ORDERED: DOCU100C36 PO (18:05)
[2018-04-03] MEDS ORDERED: ASPI-1169 PO (18:05)
[2018-04-03 18:08] LABS: TROPONIN I 0.054 ng/mL (0.00-0.056)
[2018-04-03 18:13] LABS: B-TYPE NATRIURETIC PEPTIDE 8629 PG/ML (0-125); CALCIUM, SERUM 8.2 mg/dL (8.5-10.1); CHLORIDE 94 mmol/L (98-107); CREATININE 0.9 mg/dL (0.6-1.3); GLUCOSE 174 mg/dL (74-106); POTASSIUM 4.3 mmol/L (3.5-5.1); SODIUM SERUM 136 mmol/L (136-145); UREA NITROGEN, BLOOD 22 mg/dL (7-18)
[2018-04-03 18:18] LABS: CARBON DIOXIDE 44 mmol/L (21-32)
[2018-04-03 18:21] LABS: BASOPHILS # (AUTO) 0.1 /CMM (0.0-0.2); HEMATOCRIT 26 % (39-51); HEMOGLOBIN 8.5 g/dL (13.5-17.5); LYMPHOCYTES # (AUTO) 0.5 /CMM (0.8-4.8); LYMPHOCYTES % (AUTO) 3.4 % (20.0-44.0); MEAN CORPUSCULAR HGB CONC 33 g/dl (31.0-36.0); MEAN CORPUSCULAR VOLUME 96 fL (80-96); MONOCYTES # (AUTO) 0.5 /CMM (0.1-1.30); MONOCYTES % (AUTO) 3.7 % (2.0-12.0); NEUTROPHILS # (AUTO) 13.2 /CMM (1.8-8.9); NEUTROPHILS % (AUTO) 91.9 % (43.0-81.0); PLATELET COUNT (AUTO) 113 /CMM (150-450); RDW COEFFICIENT OF VARIATION 18.7 (11.5-15.0); RED BLOOD CELL COUNT(AUTO) 2.72 MIL/uL (4.5-6.0); WHITE BLOOD COUNT (AUTO) 14.4 K/uL (4.3-11.0)
[2018-04-03 18:22] LABS: INR 1.13 (0.85-1.15)
--- NOTE | 2018-04-03 18:26 | NUR ---
[facility] BED 112-1
--- NOTE | 2018-04-03 18:29 | NUR ---
CALLED [facility] PAGED
[2018-04-03] MEDS ORDERED: IV NS 0.9% 1,000 ML BAG IV ONE (18:30)
--- NOTE | 2018-04-03 18:34 | NUR ---
REPORT GIVEN TO ROSMERY MATHEWS FOR ELIANE UPON ADMISSION.
--- NOTE | 2018-04-03 18:44 | NUR ---
CALLED NINA [phone] INFORMED ABOUT PT GOING TO BED 112-1
--- NOTE | 2018-04-03 19:06 | NUR ---
REPORT GIVEN TO NKECHI MATHEWS FOR ELIANE.
--- NOTE | 2018-04-03 19:23 | NUR ---
PER [facility] WILL PAGE DR. AVIS RODRIGUEZ
--- NOTE | 2018-04-03 19:32 | NUR ---
DR. DYE SPEAKING TO DR. AVIS RODRIGUEZ REGARDING ADMISSION
[2018-04-03 20:00] VITALS: BP 112/54
--- NOTE | 2018-04-03 20:30 | NUR ---
PT STATED ON ARRIVAL THAT HE HAD A PULSE OX SENSOR ON STRING AROUND NECK. UPON FURTHER INVESTIGATION PT DID NOT HAVE A PULSE OX SENSOR UPON ARRIVAL. CHECKED ER BELONGINGS LIST AND NO PULSE OX SENSOR WAS DOCUMENTED. CALLED FACILITY ([facility]) WHERE PT STATED HE RESIDES AND WAS NOTIFIED BY SENIOR RD ENGINEER THAT PULSE OX SENSOR WAS PROVIDED BY FACILITY AND IS CURRENTLY AT FACILITY. WILL NOTIFY PT THAT PULSE OX SENSOR IS AT FACILITY.
[2018-04-03] MEDS ORDERED: MAG HYDROX/AL HYDROX/SIMETH 30 ML UDC PO PRN (21:00)
[2018-04-03] MEDS ORDERED: HYDROCODONE/APAP 5/325MG 1 EACH TABLET PO PRN (21:00)
[2018-04-03] MEDS ORDERED: MAGNESIUM HYDROXIDE 30 ML UDC PO PRN (21:00)
[2018-04-03] MEDS ORDERED: DEXTROSE 50%-WATER 50 ML DISP.SYRIN IV PRN (21:00)
[2018-04-03] MEDS ORDERED: ACETAMINOPHEN 325 MG TABLET PO PRN (21:00)
[2018-04-03] MEDS ORDERED: ZOLPIDEM TARTRATE 5 MG TABLET PO PRN (21:00)
[2018-04-03] MEDS ORDERED: Z GUARD REMEDY 2 OZ OINT TP PRN (21:00)
[2018-04-03] MEDS ORDERED: ONDANSETRON HCL/PF 4 MG/2 ML VIAL IVP PRN (21:00)
[2018-04-03] MEDS ORDERED: CEFTRIAXONE 1 G VIAL ONE (21:29)
[2018-04-03] MEDS ORDERED: ALBUTEROL FS 2.5 MG/0.5 ML VIAL.NEB NEB PRN (21:30)
[2018-04-03] MEDS ORDERED: IPRATROPIUM NEB FS 0.5 MG/2.5 ML AMPUL.NEB NEB PRN (21:30)
[2018-04-03] MEDS: CEFTRIAXONE 1 G in IV D5W 50 ML IV SCH (21:38)
[2018-04-03] MEDS: BLOOD SUGAR DIAGNOSTIC 1 EACH STRIP IN SCH (21:58)
[2018-04-03] MEDS: HEPARIN SODIUM, PORCINE 5000 UNITS/1 ML VIAL SQ SCH (21:58)
[2018-04-03] MEDS: INSULIN REGULAR, HUMAN 100 UNIT/ML 3 ML VIAL SQ PRN (22:01)
[2018-04-04] VITALS: BP 105/48
[2018-04-04 04:00] VITALS: BP 103/58
[2018-04-04 06:30] LABS: BASOPHILS % (AUTO) 0.1 % (0.0-2.0); HEMATOCRIT 26 % (39-51); HEMOGLOBIN 8.6 g/dL (13.5-17.5); MEAN CORPUSCULAR HGB CONC 33 g/dl (31.0-36.0); MEAN CORPUSCULAR VOLUME 96 fL (80-96); MONOCYTES # (AUTO) 0.4 /CMM (0.1-1.30); MONOCYTES % (AUTO) 3.4 % (2.0-12.0); NEUTROPHILS # (AUTO) 11.1 /CMM (1.8-8.9); NEUTROPHILS % (AUTO) 88.5 % (43.0-81.0); PLATELET COUNT (AUTO) 113 /CMM (150-450); RDW COEFFICIENT OF VARIATION 18.7 (11.5-15.0); RED BLOOD CELL COUNT(AUTO) 2.71 MIL/uL (4.5-6.0); WHITE BLOOD COUNT (AUTO) 12.5 K/uL (4.3-11.0)
[2018-04-04 06:53] LABS: CHOLESTEROL 117 mg/dL (<200); HDL CHOLESTEROL 71 mg/dL (40-60); LDL 45 mg/dL (0-99); THYROID STIMULATING HORMONE 1.409 uIU/mL (0.358-3.74); TRIGLYCERIDES 24 mg/dL (30-150)
[2018-04-04 07:08] LABS: CALCIUM, SERUM 8.6 mg/dL (8.5-10.1); CHLORIDE 96 mmol/L (98-107); CREATININE 0.8 mg/dL (0.6-1.3); MAGNESIUM 2.1 mg/dL (1.8-2.4); PHOSPHORUS 3.5 mg/dL (2.5-4.9); SODIUM SERUM 141 mmol/L (136-145); UREA NITROGEN, BLOOD 22 mg/dL (7-18)
--- NOTE | 2018-04-04 07:15 | NUR ---
ADVISOR ADVOCATE ANGEL CO FOUNDER OPENING NOTE PATIENT RECEIVED IN BED.AXOX4.ON O2 VIA NASAL CANULA 2L.NO SOB NO DISTRESS NOTED.ON TELE MONITOR WITH AFIB 127.IV ON RFA #18.ALL NEEDS MET. CALL LIGHT IN REACH.BED LOCKED AND IN LOW POSITION.SRX3.CONTINUE TO MONITOR.
[2018-04-04] MEDS: BLOOD SUGAR DIAGNOSTIC 1 EACH STRIP IN SCH ×4 (07:43→21:43)
[2018-04-04] MEDS ORDERED: MAGN400O6 PO (07:44)
[2018-04-04] MEDS ORDERED: MAG30ORA PO (07:44)
[2018-04-04] MEDS ORDERED: BLOO-668 IN (07:44)
[2018-04-04] MEDS ORDERED: INSU100V3 SQ (07:44)
[2018-04-04] MEDS ORDERED: ZINC220C8 PO (07:44)
[2018-04-04] MEDS ORDERED: IPRA0.2S9 IH (07:44)
[2018-04-04] MEDS ORDERED: ACET-868 PO (07:44)
[2018-04-04] MEDS ORDERED: ACET-2605 PO (07:44)
[2018-04-04] MEDS ORDERED: BISA10SU8 RC (07:44)
[2018-04-04] MEDS ORDERED: NA P133E RC (07:44)
[2018-04-04 07:48] LABS: CARBON DIOXIDE 46 mmol/L (21-32)
[2018-04-04 07:49] LABS: GLUCOSE 41 mg/dL (74-106)
[2018-04-04 08:00] VITALS: BP 100/65
--- NOTE | 2018-04-04 08:05 | NUR ---
TURN OPERATOR NOTE BLOOD SUGAR CHECKED ,39.ORANGE JUICE GIVEN AND RECHECKED IN 15 MIN .BACK TO NORMAL LEVEL 92.LAB CALLED FOR LOW GLUCOSE LEVEL.MADE AWARE ABOUT THE BLOOD SUGAR CHECK..
[2018-04-04] MEDS: PANTOPRAZOLE 40 MG VIAL IV SCH (08:26)
[2018-04-04] MEDS: HEPARIN SODIUM, PORCINE 5000 UNITS/1 ML VIAL SQ SCH ×2 (08:35→21:48)
[2018-04-04] MEDS ORDERED: acetaZOLAMIDE SODIUM 500 MG/VIAL VIAL IV ONE (11:30)
[2018-04-04 12:00] VITALS: BP 103/64
[2018-04-04] MEDS: DIGOXIN INJ 0.5 MG/2 ML AMPUL IV SCH ×2 (12:05→17:17)
[2018-04-04] MEDS: INSULIN REGULAR, HUMAN 100 UNIT/ML 3 ML VIAL SQ PRN (12:48)
--- NOTE | 2018-04-04 13:00 | NUR ---
AUTOGLAZIER NOTES SEEN BY DIETITIAN WITH NEW DIETARY RECOMMENDATION BECAUSE OF THE MALNUTRITION ALERT.SOFTWARE SALES EXECUTIVE RONNY MADE AWARE.ALSO INFORMED ABOUT PATIENT LABS AND LOW BLOOD SUGAR.
[2018-04-04] MEDS: ASCORBIC ACID 500 MG TABLET PO SCH (17:16)
[2018-04-04] MEDS: MULTIVITAMINS,THERAGRAN 1 UDTAB TABLET PO SCH (17:16)
--- NOTE | 2018-04-04 17:30 | NUR ---
CREDIT AUTHORIZER NOTE SEEN BY WITH NEW ORDER FOR I MATTRESS.
--- NOTE | 2018-04-04 17:40 | NUR ---
WOOD DRILLING MACHINE OPERATOR NOTE BLOOD SUGAR IS LOW 65 ORANGE JUICE GIVEN .PATIENT IS ASYMPTOMATIC .AXOX4 LIKE SAME EPISODE IN THE MORNING.
[2018-04-04 18:00] VITALS: BP 102/58
[2018-04-04] MEDS: GLUCERNA SHAKE 237 ML CAN PO SCH (18:49)
--- NOTE | 2018-04-04 18:50 | NUR ---
INTERNAL REVENUE AGENT NOTE GOT CALL FROM WEB METHODS DEVELOPER COURY FROM [facility] TOLD TO PLANNING TO DO PROCEDURE ORIF OF DISTAL FEMUR FRACTURE WITH RETROGRADE NAIL ON 04/05/18.NPO POST MIDNIGHT.SON AWARE.WAITING FOR SON TO BE SIGN FOR THE CONSENT.
--- NOTE | 2018-04-04 19:00 | NUR ---
MEDICAL OFFICE SPECIALIST SHIFT END NOTE PATIENT IN BED.AXOX4.ON O2 VIA NASAL CANULA 2L.NO SOB NO DISTRESS NOTED DURING THE CARE.ON TELE MONITOR WITH AFIB 104.IV ON RFA #18.ALL NEEDS MET. CALL LIGHT IN REACH.BED LOCKED AND IN LOW POSITION.SRX3. IS AT BEDSIDE.WILL ENDORSE TO PM NURSE FOR ELIANE.
[2018-04-04 20:00] VITALS: BP 91/51
[2018-04-04] MEDS: CEFTRIAXONE 1 G in IV D5W 50 ML IV SCH (21:08)
[2018-04-05] VITALS (15 sets, daily range): BP systolic 93–116; BP diastolic 45–72
[2018-04-05] MEDS: DIGOXIN INJ 0.5 MG/2 ML AMPUL IV SCH (00:16)
[2018-04-05 06:40] LABS: TROPONIN I 0.038 ng/mL (0.00-0.056)
[2018-04-05 06:51] LABS: ALANINE AMINOTRANSFERASE 30 U/L (12-78); ALBUMIN 2.6 g/dL (3.4-5.0); ALKALINE PHOSPHATASE 86 U/L (46-116); ASPARTATE AMINOTRANSFERASE 24 U/L (15-37); BILIRUBIN,TOTAL 0.5 mg/dL (0.2-1.0); CALCIUM, SERUM 8.9 mg/dL (8.5-10.1); CHLORIDE 98 mmol/L (98-107); CREATININE 0.9 mg/dL (0.6-1.3); GLUCOSE 94 mg/dL (74-106); MAGNESIUM 2.2 mg/dL (1.8-2.4); PHOSPHORUS 3.8 mg/dL (2.5-4.9); POTASSIUM 3.9 mmol/L (3.5-5.1); SODIUM SERUM 139 mmol/L (136-145); TOTAL PROTEIN, SERUM 6.9 g/dL (6.4-8.2); UREA NITROGEN, BLOOD 24 mg/dL (7-18)
[2018-04-05 06:54] LABS: PREALBUMIN 13.8 MG/DL (18.0-35.7)
[2018-04-05 07:05] LABS: CARBON DIOXIDE 42 mmol/L (21-32)
[2018-04-05 07:17] LABS: BASOPHILS % (AUTO) 0.2 % (0.0-2.0); EOSINOPHILS % (AUTO) 0.4 % (0.0-6.0); HEMATOCRIT 24 % (39-51); HEMOGLOBIN 7.6 g/dL (13.5-17.5); LYMPHOCYTES # (AUTO) 0.7 /CMM (0.8-4.8); MEAN CORPUSCULAR HGB CONC 32 g/dl (31.0-36.0); MEAN CORPUSCULAR VOLUME 98 fL (80-96); MONOCYTES # (AUTO) 0.4 /CMM (0.1-1.30); MONOCYTES % (AUTO) 4.8 % (2.0-12.0); NEUTROPHILS # (AUTO) 6.3 /CMM (1.8-8.9); NEUTROPHILS % (AUTO) 84.6 % (43.0-81.0); PLATELET COUNT (AUTO) 96 /CMM (150-450); RDW COEFFICIENT OF VARIATION 18.6 (11.5-15.0); WHITE BLOOD COUNT (AUTO) 7.4 K/uL (4.3-11.0)
--- NOTE | 2018-04-05 07:22 | NUR ---
RN NOTES RECEIVED PT FROM SPECIAL EDUCATION TUTOR, A&0X3, ON 2L NC SATING WELL NO SOB OR DISTRESS NOTED. A FIB ON THE TELE RONDA HR 100. RFA 18G IV SITE INTACT, NO IVF. BED LOCKED AND IN LOWEST POSITION, CALL LIGHT WITHIN REACH, SIDE RAILS UPX3, WILL CONT TO RONDA.
--- NOTE | 2018-04-05 07:42 | NUR ---
WOUND CARE CONSULT: PT FOLLOWED BY SURGICAL TEAM FOR WOUNDS. DEFER TO SURGICAL TEAM FOR WOUND TREATMENT PLAN. ALL SKIN PROTECTION AND PRESSURE ULCER PREVENTION MEASURES IN PLACE AND DISCUSSED WITH NURSING STAFF.
[2018-04-05 07:47] LABS: IRON, SERUM 13 ug/dl (50-175); TOTAL IRON BINDING CAPACITY 179 ug/dl (250-450)
[2018-04-05] MEDS: GLUCERNA SHAKE 237 ML CAN PO SCH ×3 (08:00→16:17)
--- NOTE | 2018-04-05 08:30 | NUR ---
RN NOTES 0900 HEPARIN HELD, PT IS SCHEDULED TO HAVE A WOUND DEBRIDEMENT.
[2018-04-05] MEDS: HEPARIN SODIUM, PORCINE 5000 UNITS/1 ML VIAL SQ SCH ×2 (08:45→21:00)
[2018-04-05] MEDS: BLOOD SUGAR DIAGNOSTIC 1 EACH STRIP IN SCH ×4 (08:52→22:51)
[2018-04-05] MEDS: MULTIVITAMINS,THERAGRAN 1 UDTAB TABLET PO SCH (08:53)
[2018-04-05] MEDS: PANTOPRAZOLE 40 MG VIAL IV SCH (08:53)
[2018-04-05] MEDS: ASCORBIC ACID 500 MG TABLET PO SCH (08:53)
[2018-04-05] MEDS: CADEXOMER IODINE 40 GM TUBE TP SCH (08:54)
[2018-04-05 09:00] LABS: LYMPHOCYTES % (MANUAL) 6 % (16-48); MONOCYTES % (MANUAL) 4 % (0-11.0); NEUTROPHILS % (MANUAL) 90 (42-76)
[2018-04-05] MEDS: DIGOXIN ELIX UDC 0.25 MG/5 ML UDC GT SCH (12:07)
[2018-04-05] MEDS: SOD FERRIC GLUC 125 MG in IV NS 0.9% 100 ML IV SCH (14:35)
[2018-04-05] MEDS: IPRATROPIUM NEB FS 0.5 MG/2.5 ML AMPUL.NEB NEB SCH ×2 (16:10→20:31)
[2018-04-05] MEDS: methylPREDNISolone SOD SUCC 125 MG/2ML VIAL IV SCH (16:17)
[2018-04-05 16:24] LABS: ABG BASE EXCESS 14.1 mmol/L; ABG OXYGEN SATURATION 98.4 % (92.0-98.5); ABG PCO2 104.2 mmHg (35.0-45.0); ABG PH 7.244 (7.350-7.450); COHb 0.6 % (0.5-1.5); MetHb 0.6 % (0.0-1.5); O2Hb 97.2 % (94.0-97.0); SITE, ABG Left Radial
--- NOTE | 2018-04-05 16:39 | NUR ---
RN NOTES ABG DONE ON PT, RESULTS GIVEN TO DR SINGH AND SUSAN SOTO. ORDER TO TRANSFER PT TO ICU ON BIPAP.
--- NOTE | 2018-04-05 17:21 | NUR ---
RT PLACED PT ON BIPAP PER DR SINGH, NO REDNESS NOTED ON PTS FACE, PLACED MEPILEX FOR SKIN INTEGRITY.WILL CONTINUE TO MONITOR T/O SHIFT. Addendum: 04/05/18 at 1722 by MARY CUEVA RT Amended: Links added.
--- NOTE | 2018-04-05 18:00 | NUR ---
RN NOTES PT TRANSFERRED TO ICU IN STABLE CONDITION. PLACED ON BIPAP 15/5 RR 12 BY RT. ORDER TO TITRATE O2 TO 90% PT TOLERATING BIPAP, AT BEDSIDE. WILL ENDORSE TO ONCOMING SHIFT.
[2018-04-05 19:19] LABS: ABG BASE EXCESS 19.4 mmol/L; ABG OXYGEN SATURATION 53.6 % (92.0-98.5); ABG PCO2 85.8 mmHg (35.0-45.0); ABG PH 7.363 (7.350-7.450); ABG PO2 27.4 mmHg (75.0-100.0); COHb 0.4 % (0.5-1.5); MetHb 0.7 % (0.0-1.5); SITE, ABG Right Brachial
[2018-04-05] MEDS ORDERED: ALBUTEROL HALF STRENGTH 1.25 MG/3 ML VIAL.NEB NEB PRN (19:30)
--- NOTE | 2018-04-05 19:30 | NUR ---
VISCOSE CELLAR WORKER NOTE RELAYED ABG RESULT TO DR. SINGH WITH ORDERS FOR REPEAT ABG. RELAYED TO RT.
--- NOTE | 2018-04-05 19:30 | NUR ---
MAINTENANCE CONTROLLER INITIAL NOTE RECEIVED PATIENT AWAKE A/OX3, ABLE TO MAKE NEEDS KNOWN. AT BEDSIDE. DENIES PAIN OR DISCOMFORT. NO RESPIRATORY DISTRESS NOTED ON BIPAP WITH SETTINGS 15/5 RATE 12, FIO2 28%, SPO2 100%. SKIN WARM AND DRY TO TOUCH. ON TELE MONITOR AFIB CONTROLLED WITH OCC VPACING. HOB ELEVATED. SIDE RAILS UP AND LOCKED. BED KEPT AT LOWEST POSITION. CALL LIGHT KEPT WITHIN EASY REACH. WILL CONTINUE TO MONITOR.
[2018-04-05 20:08] LABS: ABG BASE EXCESS 15.2 mmol/L; ABG OXYGEN SATURATION 95.6 % (92.0-98.5); ABG PH 7.377 (7.350-7.450); AaDO2 34.3 mmHg; COHb 1.2 % (0.5-1.5); MetHb 0.7 % (0.0-1.5); O2Hb 93.8 % (94.0-97.0); SITE, ABG Left Radial
--- NOTE | 2018-04-05 20:22 | NUR ---
WEBSPHERE PROCESS SERVER DEVELOPER NOTE RELAYED ABG RESULT TO DR. SINGH WITH NNO
--- NOTE | 2018-04-05 21:35 | NUR ---
CIGARETTE TESTER NOTE CLARIFIED ADMINISTRATION OF HEPARIN WITH NATURAL RESOURCES PROFESSOR AVIS RODRIGUEZ, PATIENT WITH DECREASING HGB AND PLATELET. WITH ORDERS FOR STAT PT/INR. HOLD HEPARIN FOR NOW UNTIL RESULT COMES BACK. NOTED AND CARRIED OUT. WILL CONTINUE TO MONITOR.
[2018-04-05] MEDS: CEFTRIAXONE 1 G in IV D5W 50 ML IV SCH (21:52)
--- NOTE | 2018-04-05 22:00 | NUR ---
SCREEN ROLLER NOTE PATIENT C/O FEELING HUNGRY, DINNER TRAY AT BEDSIDE, HEATED FOR PATIENT, AT BEDSIDE. PLACED PATIENT ON 2LPMO2 VIA NC WITH NO COMPLICATIONS. WILL CONTINUE TO MONITOR.
[2018-04-05 22:37] LABS: INR 1.09 (0.87-1.13)
--- NOTE | 2018-04-05 22:54 | NUR ---
TRAVEL ACCOMMODATION INSPECTOR NOTE RELAYED PT/INR RESULT TO BARISTA AVIS RODRIGUEZ WITH ORDERS FOR STOOL OB, HOLD HEPARIN DOSE, AND PLACE SCDS ON PATIENT. NOTED AND CARRIED OUT
--- NOTE | 2018-04-05 22:59 | NUR ---
PATIENT OFF BIPAP AND ON 2LNC; SaO2 100% HR 83 BP 93/51. BIPAP ON STANDBY MODE. PATIENT REMAINED STABLE WITH NO DISTRESS NOTED. Addendum: 04/05/18 at 2301 by AZALIA CHIU RT Amended: Links added.
--- NOTE | 2018-04-05 23:30 | NUR ---
HERD TESTER NOTE PATIENT FINISHED EATING, ATE 50% OF FOOD. RT AT BEDSIDE, PLACED PATIENT BACK ON BIPAP. WILL CONTINUE TO MONITOR.
[2018-04-06] VITALS (24 sets, daily range): BP systolic 91–124; BP diastolic 44–77
--- NOTE | 2018-04-06 00:21 | NUR ---
PRINCIPAL SYSTEMS ARCHITECT NOTE BED BATH GIVEN, C/O 3/10 LEFT HEEL PAIN. PRN TYLENOL GIVEN. WILL CONTINUE TO MONITOR.
[2018-04-06] MEDS: IPRATROPIUM NEB FS 0.5 MG/2.5 ML AMPUL.NEB NEB SCH ×4 (01:46→20:19)
[2018-04-06 04:47] LABS: BASOPHILS % (AUTO) 0.2 % (0.0-2.0); EOSINOPHILS % (AUTO) 0.5 % (0.0-6.0); HEMATOCRIT 23 % (39-51); HEMOGLOBIN 7.4 g/dL (13.5-17.5); LYMPHOCYTES # (AUTO) 0.6 /CMM (0.8-4.8); LYMPHOCYTES % (AUTO) 10.8 % (20.0-44.0); MEAN CORPUSCULAR HGB CONC 32 g/dl (31.0-36.0); MEAN CORPUSCULAR VOLUME 98 fL (80-96); MONOCYTES # (AUTO) 0.3 /CMM (0.1-1.30); MONOCYTES % (AUTO) 5.3 % (2.0-12.0); NEUTROPHILS # (AUTO) 4.5 /CMM (1.8-8.9); NEUTROPHILS % (AUTO) 83.2 % (43.0-81.0); PLATELET COUNT (AUTO) 87 /CMM (150-450); RDW COEFFICIENT OF VARIATION 18.3 (11.5-15.0); RED BLOOD CELL COUNT(AUTO) 2.32 MIL/uL (4.5-6.0); WHITE BLOOD COUNT (AUTO) 5.4 K/uL (4.3-11.0)
[2018-04-06 05:22] LABS: LYMPHOCYTES % (MANUAL) 8 % (16-48); MONOCYTES % (MANUAL) 3 % (0-11.0); NEUTROPHILS % (MANUAL) 89 (42-76)
[2018-04-06 05:26] LABS: CALCIUM, SERUM 8.8 mg/dL (8.5-10.1); CHLORIDE 99 mmol/L (98-107); CREATININE 0.8 mg/dL (0.6-1.3); GLUCOSE 87 mg/dL (74-106); MAGNESIUM 2.2 mg/dL (1.8-2.4); PHOSPHORUS 2.5 mg/dL (2.5-4.9); POTASSIUM 3.6 mmol/L (3.5-5.1); SODIUM SERUM 141 mmol/L (136-145); UREA NITROGEN, BLOOD 24 mg/dL (7-18)
[2018-04-06 05:32] LABS: CARBON DIOXIDE 40 mmol/L (21-32)
--- NOTE | 2018-04-06 05:59 | NUR ---
PATIENT RECEIVED ON BIPAP 15/5, 28%, RR 12, TOLERATING WELL WITH NO SIGN OF DISTRESS. GIVEN IN-LINE HHN TREATMENTS WITH NO ADVERSE REACTIONS. AMBU BAG AT BEDSIDE. BIPAP PLUGGED INTO RED OUTLET. CONTINUE TO MONITOR PATIENT'S PROGRESS. '''''''''''''''''''''''''''''''''''''''''''''''''''''''''''''''''''''''''''''''''''''''''''' '''''''''''''''''''''''''''''''''''''''''''''''''''''''''''''''''''''''''''''''''''''''''''' '''''''''''''''''''''''''''''''''''''''''''''''''''''''''''''''''''''''''''''''''''''''''''' '''''''''''''''''''''''''''''''''''''''''''''''''''''''''''''''''''''''''''''''''''''''''''' '''''''''''''''''''''''''''''''''''''''''''''''''''''''''''''''''''''''''''''''''''''''''''' '''''''''''''''''''''''''''''''''''''''''''''''''''''''''''''''''''''''''''''''''''''''''''' '''''''''''''''''''''''''''''''''''''''''''''''''''''''''''''''''''''''''''''''''''''''''''' '''''''''''''''''''''''''''''''''''''''''''''''''''''''''''''''''''''''''''''''''''''''''''' '''''''''''''''''''''''''''''''''''''''''''''''''''''''''''''''''''''''''''''''''''''''''''' '''''''''''''''''''''''''''''''''''''''''''''''''''''''''''''''''''''''''''''''''''''''''''' '''''''''''''''''''''''''''''''''''''''''''''''''''''''''''''''''''''''''''''''''''''''''''' '''''''''''''''''''''''''''''''''''''''''''''''''''''''''''''''''''''''''''''''''''''''''''' '''''''''''''''''''''''''''''''''''''''''''''''''''''''''''''''''''''''''''''''''''''''''''' '''''''''''''''''''''''''''''''''''''''''''''''''''''''''''''''''''''''''''''''''''''''''''' '''''''''''''''''''''''''''''''''''' Addendum: 06/02/18 at 0606 ravin CLEANING Amended: Links added.
--- NOTE | 2018-04-06 07:18 | NUR ---
LENS GRINDER CLOSING NOTE NO SIGNIFICANT CHANGES OVERNIGHT. TOLERATED BIPAP SETTINGS. NO DISTRESS NOTED. ALL NEEDS ANTICIPATED AND MET. KEPT CLEAN AND DRY. TURNED AND REPOSITIONED Q2 AND PRN. WOUND TX PROVIDED. HOB ELEVATED. SIDE RAILS UP AND LOCKED. BED KEPT AT LOWEST POSITION. CALL LIGHT KEPT WITHIN EASY REACH. CONTINUITY OF CARE ENDORSED TO AM NURSE.
--- NOTE | 2018-04-06 07:30 | NUR ---
RECEIVED PATIENT AWAKE A/OX3, ABLE TO MAKE NEEDS KNOWN. AT BEDSIDE. DENIES PAIN OR DISCOMFORT. NO DISTRESS NOTED ON BIPAP WITH SETTINGS 15/5 RATE 12, FIO2 28%, SPO2 100%. SKIN WARM AND DRY TO TOUCH. ON TELE MONITOR AFIB CONTROLLED WITH OCC VPACING. HOB ELEVATED. SIDE RAILS UP AND LOCKED. BED KEPT AT LOWEST POSITION. CALL LIGHT KEPT WITHIN EASY REACH. WILL CONTINUE TO MONITOR.
[2018-04-06] MEDS: BLOOD SUGAR DIAGNOSTIC 1 EACH STRIP IN SCH ×4 (07:52→21:20)
[2018-04-06] MEDS: GLUCERNA SHAKE 237 ML CAN PO SCH ×3 (08:00→17:52)
[2018-04-06] MEDS: PANTOPRAZOLE 40 MG VIAL IV SCH (08:22)
[2018-04-06] MEDS: ASCORBIC ACID 500 MG TABLET PO SCH (08:22)
[2018-04-06] MEDS: MULTIVITAMINS,THERAGRAN 1 UDTAB TABLET PO SCH (08:22)
[2018-04-06] MEDS: methylPREDNISolone SOD SUCC 125 MG/2ML VIAL IV SCH ×2 (08:23→17:51)
[2018-04-06] MEDS: HEPARIN SODIUM, PORCINE 5000 UNITS/1 ML VIAL SQ SCH ×3 (08:23→21:20)
[2018-04-06] MEDS: CADEXOMER IODINE 40 GM TUBE TP SCH (08:25)
[2018-04-06 09:53] LABS: ABG BASE EXCESS 13.8 mmol/L; ABG OXYGEN SATURATION 92.8 % (92.0-98.5); ABG PCO2 67.3 mmHg (35.0-45.0); ABG PH 7.398 (7.350-7.450); ABG PO2 69.2 mmHg (75.0-100.0); AaDO2 21.8 mmHg; COHb 0.4 % (0.5-1.5); MetHb 0.4 % (0.0-1.5); O2Hb 92.1 % (94.0-97.0); SITE, ABG Right Brachial; VENT MODE, BG NASAL CANNULA
[2018-04-06] MEDS: INSULIN REGULAR, HUMAN 100 UNIT/ML 3 ML VIAL SQ PRN ×3 (12:01→21:19)
[2018-04-06] MEDS: DIGOXIN ELIX UDC 0.25 MG/5 ML UDC GT SCH (14:03)
[2018-04-06] MEDS: SOD FERRIC GLUC 125 MG in IV NS 0.9% 100 ML IV SCH (14:27)
--- NOTE | 2018-04-06 19:40 | NUR ---
RN OPENING NOTES: RECEIVED PATIENT ON BED AWAKE AND ALERT, ORIENTED X4, NOT IN APPARENT DISTRESS ON O2 AT 2LPM; TOLERATED WELL. NO COMPLAINTS OF PAIN AT THIS TIME. AFIB CONTROLLED ON THE MONITOR HR AT THE 80'S., WITH OCCASIONAL VPACING ON THE MONITOR. NOTED WITH LCW PACEMAKER. IV ACCES ON RIGHT FOREARM G18, PATENT AND INTACT, SL AT THIS TIME. NOTED WITH INTACT DRESSING ON LEFT HEEL. FAMILY AT BEDSIDE. SAFETY MEASURES ENSURED AT ALL TIMES. CALL LIGHT AND URINAL IN REACH. CONTINUOUSLY MONITORED.
--- NOTE | 2018-04-06 19:55 | NUR ---
RN NOTES: OBSERVED DISCOLORED AREA ON PATIENT'S BRIDGE OF NOSE. NOTED SOME AREAS BLANCHABLE AND SOME PARTS NON BLANCHABLE. TO MONITOR. TO APPLY MEPILEX IF ON BIPAP AT NIGHT. CONTINUOUSLY MONITORED.
[2018-04-06] MEDS: CEFTRIAXONE 1 G in IV D5W 50 ML IV SCH (21:13)
--- NOTE | 2018-04-06 21:30 | NUR ---
RN NOTES: WITH PM DOSE OF HEPARIN SQ. NOTED HGB AT 7.4 AND PLATELETS AT 87 NOTED TO BE LOWER THAN YESTERDAY. CALLED CREW CHIEF ARSEN TO VERIFY IF OK TO GIVE DOSE. PT ON DVT PUMPS, INR IS WNL AND PT NOT ACTIVELY BLEEDING; REPORTED AND MADE CREW CHIEF AWARE. PER JOSHUA RODRIGUEZ TO HOLD DOSE FOR TONIGHT. HEPARIN NON ADMINISTERED. CONTINUOUSLY MONITORED.
[2018-04-07] VITALS (16 sets, daily range): BP systolic 112–142; BP diastolic 56–86
[2018-04-07] MEDS: IPRATROPIUM NEB FS 0.5 MG/2.5 ML AMPUL.NEB NEB SCH ×4 (01:30→19:58)
--- NOTE | 2018-04-07 02:00 | NUR ---
REID WOODARD NOTES: PATIENT ON BIPAP. TOLERATED WELL. CONTINUOUSLY MONITORED.
[2018-04-07 04:44] LABS: BASOPHILS % (AUTO) 0.1 % (0.0-2.0); EOSINOPHILS % (AUTO) 0.6 % (0.0-6.0); HEMATOCRIT 26 % (39-51); HEMOGLOBIN 8.6 g/dL (13.5-17.5); LYMPHOCYTES # (AUTO) 0.4 /CMM (0.8-4.8); LYMPHOCYTES % (AUTO) 9.4 % (20.0-44.0); MEAN CORPUSCULAR HGB CONC 33 g/dl (31.0-36.0); MEAN CORPUSCULAR VOLUME 96 fL (80-96); MONOCYTES # (AUTO) 0.1 /CMM (0.1-1.30); MONOCYTES % (AUTO) 1.9 % (2.0-12.0); NEUTROPHILS # (AUTO) 3.4 /CMM (1.8-8.9); PLATELET COUNT (AUTO) 120 /CMM (150-450); RDW COEFFICIENT OF VARIATION 18.3 (11.5-15.0); RED BLOOD CELL COUNT(AUTO) 2.72 MIL/uL (4.5-6.0); WHITE BLOOD COUNT (AUTO) 3.9 K/uL (4.3-11.0)
[2018-04-07 05:03] LABS: ALANINE AMINOTRANSFERASE 28 U/L (12-78); ALBUMIN 2.7 g/dL (3.4-5.0); ALKALINE PHOSPHATASE 95 U/L (46-116); ASPARTATE AMINOTRANSFERASE 16 U/L (15-37); BILIRUBIN,TOTAL 0.4 mg/dL (0.2-1.0); CALCIUM, SERUM 8.8 mg/dL (8.5-10.1); CARBON DIOXIDE 39 mmol/L (21-32); CHLORIDE 100 mmol/L (98-107); CREATININE 0.7 mg/dL (0.6-1.3); GLUCOSE 181 mg/dL (74-106); MAGNESIUM 2.1 mg/dL (1.8-2.4); POTASSIUM 3.9 mmol/L (3.5-5.1); SODIUM SERUM 141 mmol/L (136-145); TOTAL PROTEIN, SERUM 7.4 g/dL (6.4-8.2); TROPONIN I 0.036 ng/mL (0.00-0.056); UREA NITROGEN, BLOOD 25 mg/dL (7-18)
--- NOTE | 2018-04-07 06:41 | NUR ---
RN CLOSING NOTES: PATIENT REMAINED IN BED NOT IN APPARENT DISTRESS.PATIENT ASKED TO BE REMOVED FROM BIPAP DESPITE EXPLANATION OF RISKS AND BENEFITS. RT MADE AWARE OF PATIENT'S CONCERN. TO BE PLACE DON O2 THERAPY ORDERED. NO COMPLAINTS OF PAIN OR DISCOMFORT. SKIN CARE AND WOUND DRESSING CHANGE RENDERED. PHOTO OF BRIDGE OF NOSE DISCOLORATION TAKEN AND PLACED IN CHART. IV ACCESS REMAINED INTACT. SAFETY MEASURES ENSURED. TO ENDORSE TO AM SHIFT RN.
[2018-04-07] MEDS: GLUCERNA SHAKE 237 ML CAN PO SCH ×3 (08:29→17:32)
[2018-04-07] MEDS: BLOOD SUGAR DIAGNOSTIC 1 EACH STRIP IN SCH ×4 (08:29→21:12)
[2018-04-07] MEDS: INSULIN REGULAR, HUMAN 100 UNIT/ML 3 ML VIAL SQ PRN ×4 (08:30→21:14)
[2018-04-07] MEDS: PANTOPRAZOLE 40 MG VIAL IV SCH (09:01)
[2018-04-07] MEDS: ASCORBIC ACID 500 MG TABLET PO SCH (09:01)
[2018-04-07] MEDS: methylPREDNISolone SOD SUCC 125 MG/2ML VIAL IV SCH ×2 (09:01→17:31)
[2018-04-07] MEDS: MULTIVITAMINS,THERAGRAN 1 UDTAB TABLET PO SCH (09:01)
[2018-04-07] MEDS: CADEXOMER IODINE 40 GM TUBE TP SCH (09:02)
[2018-04-07] MEDS: HEPARIN SODIUM, PORCINE 5000 UNITS/1 ML VIAL SQ SCH ×2 (09:03→21:13)
--- NOTE | 2018-04-07 10:33 | NUR ---
GALLERY HOST NOTE 0720: Received patient awake, A/Ox4. No respiratory distress noted. On 1LPM of O2 via NC tolerated. No c/o discomfort at this time. Afib 100's controlled. RFA PIV intact. 0800: S/E by Dr. Lucia, no new order at this time. 0900: Diet tolerated well, encouraged to finish Boost supplement. 0920: S/E by Dr. Perez, with order to may transfer patient to [facility]. Made patient aware, verbalized understanding re: the transfer. 1020: Transferred patient via bed using ACLS protocol, no significant changes noted. VSS. Report given to Zandra MATHEWS for ELIANE.
[2018-04-07] MEDS: DIGOXIN ELIX UDC 0.25 MG/5 ML UDC GT SCH (13:04)
--- NOTE | 2018-04-07 14:00 | NUR ---
RT PATIENT AWAKE, ALERT, ZERO SOB. PATIENT DID NOT WANT RESP HHN TX. B/S CLEAR.
[2018-04-07] MEDS: SOD FERRIC GLUC 125 MG in IV NS 0.9% 100 ML IV SCH (14:28)
--- NOTE | 2018-04-07 19:00 | NUR ---
[facility] RN NOTES: 1025h REC'D PT FROM [facility], TRANSFERRED VIA BED ACCOMPANIED BY . PT IS A/O X 3, NOT IN ANY DISTRESS. ON NC AT 1LPM, SATING AT 100%. PLACED ON TELEMONITOR, NOTED LCW PACEMAKER, AFIB W/ HR 96BPM. HAS RFA G18, SL, PATENT & INTACT W/ NO S/SX OF INFECTION/INFILTRATION NOTED. PT ORIENTED TO ROOM. PT IS SEEN WEARING HIS DENTURES. NO ACUTE CHANGES NOTED W/IN SHIFT. PT KEPT COMFORTABLE, NEEDS ATTENDED. BED KEPT LOW & IN LOCKED POS. CALL LIGHT W/IN REACH. ENDORSED TO PM RN FOR ELIANE.
--- NOTE | 2018-04-07 19:30 | NUR ---
RN OPENING NOTES: RECEIVED REPORT FROM NURSE RHOADES. RECEIVED PATIENT IN BED, AWAKE AND ALERT, ORIENTED X4, FAMILY MEMBERS AT BEDSIDE, INVOLVED IN PATIENT'S CARE. TOLERATING O2 VIA NC @ 1LPM, NOT IN APPARENT DISTRESS. NO COMPLAINTS OF PAIN AT THIS TIME. AFIB CONTROLLED ON THE MONITOR HR IN THE 70'S-80'S. WITH OCCASIONAL VPACING ON THE MONITOR. NOTED WITH LCW PACEMAKER. IV ACCES ON RIGHT FOREARM G18, PATENT AND INTACT, SL AT THIS TIME. NOTED WITH INTACT DRESSING ON LEFT HEEL. FAMILY AT BEDSIDE. SAFETY MEASURES ENSURED AT ALL TIMES. CALL LIGHT AND URINAL IN REACH. CONTINUOUSLY MONITORED.
--- NOTE | 2018-04-07 21:02 | NUR ---
RT NOTE: PATIENT PLACED ON BIPAP 15/5, 28%, RR 12. PT IS TOLERATING WELL WITH NO SIGNS OF DISTRESS. Q6 BREATHING TREATMENT GIVEN WITH NO ADVERSE REACTIONS. AMBU BAG AT BEDSIDE. BIPAP PLUGGED INTO RED OUTLET. ALARMS ARE AUDIBLE. WILL CONTINUE TO MONITOR PATIENT'S PROGRESS.
[2018-04-07] MEDS: CEFTRIAXONE 1 G in IV D5W 50 ML IV SCH (21:11)
[2018-04-08] VITALS (7 sets, daily range): BP systolic 102–135; BP diastolic 57–79
[2018-04-08] MEDS: IPRATROPIUM NEB FS 0.5 MG/2.5 ML AMPUL.NEB NEB SCH ×4 (01:29→20:15)
--- NOTE | 2018-04-08 05:30 | NUR ---
CUT OFF SAWYER NOTES PATIENT TAKEN OFF OF BIPAP BY RT [facility] AND PLACED ON NASAL CANNULA, TOLERATING WELL, FREE FROM ANY S/S OF RESPIRATORY DISTRESS. WILL CONTINUE TO CLOSELY MONITOR
--- NOTE | 2018-04-08 07:00 | NUR ---
RN CLOSING NOTES PATIENT RESTING IN BED, APPEARS COMFORTABLE, WILL ENDORSE PATIENT TO AM SHIFT NURSE FOR CONTINUITY OF CARE
[2018-04-08 07:02] LABS: BASOPHILS % (AUTO) 0.1 % (0.0-2.0); HEMATOCRIT 28 % (39-51); HEMOGLOBIN 9.1 g/dL (13.5-17.5); LYMPHOCYTES # (AUTO) 0.6 /CMM (0.8-4.8); LYMPHOCYTES % (AUTO) 8.9 % (20.0-44.0); MEAN CORPUSCULAR HGB CONC 32 g/dl (31.0-36.0); MEAN CORPUSCULAR VOLUME 97 fL (80-96); MONOCYTES # (AUTO) 0.3 /CMM (0.1-1.30); MONOCYTES % (AUTO) 5.2 % (2.0-12.0); NEUTROPHILS # (AUTO) 5.4 /CMM (1.8-8.9); NEUTROPHILS % (AUTO) 85.8 % (43.0-81.0); PLATELET COUNT (AUTO) 157 /CMM (150-450); RDW COEFFICIENT OF VARIATION 18.8 (11.5-15.0); WHITE BLOOD COUNT (AUTO) 6.3 K/uL (4.3-11.0)
--- NOTE | 2018-04-08 07:30 | NUR ---
RECEIVED PATIENT A/0X3 SLEEPING AWAKE TO NAME. PATIENT DENIES SOB, DIFFICULTY BREATHING OR PAIN AT THIS TIME. ALL NEEDS IN REACH. SAFETY PRECAUTIONS IN PLACE. PATIENT USING URINAL WITH NO ASSISTANCE. TELE AFIB CONTROLLED WITH OCC V PACING / AND OR OCC PVC'S. PATIENT NOTED WITH PACEMAKER PRESENT LEFT CHEST WALL. IV SALINE LOCKED IN PLACE, PATENT, AND CLEAN. PATIENT AWARE WE ARE NEEDING A STOOL SAMPLE ONCE HE HAS A BM. WILL ROUND PRN
[2018-04-08 07:39] LABS: CALCIUM, SERUM 8.7 mg/dL (8.5-10.1); CHLORIDE 101 mmol/L (98-107); CREATININE 0.8 mg/dL (0.6-1.3); GLUCOSE 121 mg/dL (74-106); MAGNESIUM 2.3 mg/dL (1.8-2.4); PHOSPHORUS 3.3 mg/dL (2.5-4.9); POTASSIUM 4.2 mmol/L (3.5-5.1); SODIUM SERUM 143 mmol/L (136-145); UREA NITROGEN, BLOOD 26 mg/dL (7-18)
[2018-04-08] MEDS: BLOOD SUGAR DIAGNOSTIC 1 EACH STRIP IN SCH ×4 (07:41→22:20)
--- NOTE | 2018-04-08 07:51 | NUR ---
MESSAGE TO DR SOTO TO NOTIFY OF CO2 43.
[2018-04-08 08:06] LABS: CARBON DIOXIDE 43 mmol/L (21-32)
--- NOTE | 2018-04-08 08:20 | NUR ---
MESSAGE TO DIETARY TO NOTIFY WE ARE OUT OF GLUCERNA FOR PATIENT. DR DAVIS AWARE OF PATIENT LAB RESULTS. NO NEW ORDERS.
[2018-04-08] MEDS: methylPREDNISolone SOD SUCC 125 MG/2ML VIAL IV SCH ×2 (08:27→17:33)
[2018-04-08] MEDS: PANTOPRAZOLE 40 MG VIAL IV SCH (08:27)
[2018-04-08] MEDS: ASCORBIC ACID 500 MG TABLET PO SCH (08:27)
[2018-04-08] MEDS: MULTIVITAMINS,THERAGRAN 1 UDTAB TABLET PO SCH (08:27)
[2018-04-08] MEDS: HEPARIN SODIUM, PORCINE 5000 UNITS/1 ML VIAL SQ SCH ×2 (08:28→20:51)
[2018-04-08] MEDS: CADEXOMER IODINE 40 GM TUBE TP SCH (08:43)
--- NOTE | 2018-04-08 09:39 | NUR ---
DR HERNANDEZ AT BEDSIDE. UPDATED ON PATIENT CONDITION/VS. PER MD GIRARD TX TO TELE
[2018-04-08] MEDS: GLUCERNA SHAKE 237 ML CAN PO SCH ×3 (10:04→17:44)
--- NOTE | 2018-04-08 13:14 | NUR ---
NOTIFIED DR HERNANDEZ PATIENT HAVING FREQUENT PVC'S ABOUT 5-6 IN A ROW. CURRENTLY GETTING BREATHING TREATMENT. PER MD NO NEW ORDERS. PATIENT STATES NO SYMPTOMS.
[2018-04-08] MEDS: DIGOXIN ELIX UDC 0.25 MG/5 ML UDC GT SCH (13:34)
--- NOTE | 2018-04-08 14:43 | NUR ---
called pharmacy again spoke with chris to f/u on [email or web address]
[2018-04-08] MEDS: SOD FERRIC GLUC 125 MG in IV NS 0.9% 100 ML IV SCH (14:50)
--- NOTE | 2018-04-08 16:00 | NUR ---
care endorsed to rn for darren. marvin
[2018-04-08] MEDS: INSULIN REGULAR, HUMAN 100 UNIT/ML 3 ML VIAL SQ PRN ×2 (17:39→22:21)
--- NOTE | 2018-04-08 20:00 | NUR ---
TELE 1 RN NOTE PT IN BED EATING DINNER WITH ASSISTANCE FROM . A/O X 3, NO SOB, NO DISTRESS OR DISCOMFORT NOTED. DENIES PAIN. ON TELE A FIB WITH PVC HR 100. RFA SL #18 G INTACT AND PATENT. ALL NEEDS ATTENDED. REPOSITION HIM FOR SKIN MANAGEMENT. SIDE RAILS UP X 3 AND CALL LIGHT WITHN REACH. VSS. CONTINUE TO MONITOR HIM.
[2018-04-08] MEDS: CEFTRIAXONE 1 G in IV D5W 50 ML IV SCH (20:50)
[2018-04-09] VITALS (7 sets, daily range): BP systolic 113–123; BP diastolic 53–64
[2018-04-09] MEDS: IPRATROPIUM NEB FS 0.5 MG/2.5 ML AMPUL.NEB NEB SCH ×4 (02:29→20:02)
--- NOTE | 2018-04-09 06:00 | NUR ---
TELE 1 RN NOTE PT AWAKE AND WANTS BIPAP TO BE TURNED OFF. BIPAP REMOVED AND O2 1L VIA N/C STARTED. O2 SAT 100%. NO DISTRESS OR DISCOMFORT NOTED.
--- NOTE | 2018-04-09 06:33 | NUR ---
TELE 1 RN NOTE PT IN BED ASLEEP, NO DISTRESS OR DISCOMFORT NOTED. EASILY AROUSABLE. DENIES PAIN. ON TELE A FIB WITH PVC HR IN 80'S. REPOSITION HIM Q2H, KEPT HIM DRY AND CLEAN. ALL NEEDS ATTENDED. SIDE RAILS UP X2 AND CALL LIGHT WITHIN REACH. VSS. WILL ENDORSE TO DAY SHIFT NURSE FOR CONTINUE TO CARE.
--- NOTE | 2018-04-09 07:30 | NUR ---
ALMOND BLANCHER HAND INITIAL NOTES: RECEIVED PT IN BED, AWAKE. A&O X3. ON O2 VIA NC 3LPM. RT AT BEDSIDE DOING BREATHING TX. PT ON TELE MONITOR: A.FIB, HR 80. PACEMAKER ON L SIDE. PT USES URINAL AND BEDSIDE COMMODE. 200CC OF URINE THIS MORNING. IV ON RFA #18 GAUGE. IN TACT AND FLUSHES WELL. TKO ORDERED. PT IN NO APPARENT DISTRESS AT THIS TIME. BED IN LOW, LOCKED POSITION. CALL LIGHT WITHIN REACH. PLAN OF CARE DISCUSSED WITH PT. WILL CONTINUE TO MONITOR PT.
[2018-04-09] MEDS: BLOOD SUGAR DIAGNOSTIC 1 EACH STRIP IN SCH ×4 (08:14→23:35)
[2018-04-09] MEDS: MULTIVITAMINS,THERAGRAN 1 UDTAB TABLET PO SCH (08:15)
[2018-04-09] MEDS: PANTOPRAZOLE 40 MG VIAL IV SCH (08:15)
[2018-04-09] MEDS: HEPARIN SODIUM, PORCINE 5000 UNITS/1 ML VIAL SQ SCH ×2 (08:15→20:31)
[2018-04-09] MEDS: ASCORBIC ACID 500 MG TABLET PO SCH (08:15)
[2018-04-09] MEDS: GLUCERNA SHAKE 237 ML CAN PO SCH ×3 (08:15→16:20)
[2018-04-09] MEDS: methylPREDNISolone SOD SUCC 125 MG/2ML VIAL IV SCH ×2 (08:15→16:19)
[2018-04-09] MEDS: CADEXOMER IODINE 40 GM TUBE TP SCH (08:16)
--- NOTE | 2018-04-09 10:00 | NUR ---
SAFE DEPOSIT ATTENDANT NOTE PER DR SAMANTHA GIRARD TO TRANSFER TO [facility] NURSE AWARE , WILL F\U
--- NOTE | 2018-04-09 12:00 | NUR ---
SALT WASHER HARVESTING STATION NOTE SEEN BY PT ABLE TO AMBULATE WELL WITH WALKER
[2018-04-09] MEDS: DIGOXIN ELIX UDC 0.25 MG/5 ML UDC GT SCH (12:35)
[2018-04-09] MEDS: INSULIN REGULAR, HUMAN 100 UNIT/ML 3 ML VIAL SQ PRN ×3 (12:35→23:36)
--- NOTE | 2018-04-09 14:18 | NUR ---
CAFETERIA WORKER NOTE ALL NEEDS ATTENDED, ON BREATHING TX ORDERED BY RT
[2018-04-09] MEDS: SOD FERRIC GLUC 125 MG in IV NS 0.9% 100 ML IV SCH (14:26)
--- NOTE | 2018-04-09 16:35 | NUR ---
ECHOCARDIOGRAPHY TECH NOTE STOOL FOR OB COLLECTED ALSO PER BUILDINGS AND GROUNDS DIRECTOR BED NOT AVAILABLE IN [facility], WILL F\U
--- NOTE | 2018-04-09 17:24 | NUR ---
follow up with angelina campos pending discharge r/t placement issue.
--- NOTE | 2018-04-09 18:13 | NUR ---
SWITCHBOARD CLERK END NOTES: PT IN BED, AWAKE ALERT. HAVING DINNER. AT BEDSIDE. DISCHARGE STILL PENDING, NO BED AVAILABLE AT THIS TIME AT [facility]. PT AND AWARE. ALL NEEDS ATTENDED. CALL LIGHT WITHIN REACH. BED IN LOW LOCKED POSITION. NO APPARENT DISTRESS AT THIS TIME. WILL ENDORSE TO PM SHIFT NURSE FOR CONTINUITY OF CARE.
[2018-04-09 18:45] LABS: OCCULT BLOOD STOOL NEGATIVE (NEGATIVE)
--- NOTE | 2018-04-09 19:46 | NUR ---
TELE 1 RN NOTE PT IN BED AWAKE. A/O X 3, NO SOB, NO DISTRESS OR DISCOMFORT NOTED. DENIES PAIN. ON TELE A FIB HR 85 CONTROLLED. RFA SL # 18 G INTACT AND PATENT TKO. NO S/S OF INFILTRATION NOTED. REPOSITION HIM FOR SKIN MANAGEMENT. DVT PUMP ON BILATERAL LOWER EXT'S. SIDE RAILS UP X 3 AND CALL LIGHT WITHIN REACH. VSS. CONTINUE TO MONITOR AT BED SIDE. Addendum: 04/09/18 at 2100 by KING ABDI RN ACCIDENTALY CHARTED UNDER NURSE FOSTER NAME.
[2018-04-09] MEDS: CEFTRIAXONE 1 G in IV D5W 50 ML IV SCH (20:30)
[2018-04-10] VITALS (7 sets, daily range): BP systolic 117–123; BP diastolic 56–72
--- NOTE | 2018-04-10 | NUR ---
TELE 1 RN NOTE PT WANTS BIPAP AT THIS TIME. RT APPLIED IT. TOLERATING WELL. CONTINUE TO MONITOR HIM.
[2018-04-10] MEDS: IPRATROPIUM NEB FS 0.5 MG/2.5 ML AMPUL.NEB NEB SCH ×4 (01:17→20:03)
--- NOTE | 2018-04-10 03:30 | NUR ---
TELE 1 RN NOTE PT WOKE AND WANTS TO REMOVE THE BIPAP. STATES "I DON'T NEED NOW". N/C 1 L APPLIED O2 SAT 98%. CONTINUE TO MONITOR HIM
[2018-04-10 06:35] LABS: BASOPHILS % (AUTO) 0.3 % (0.0-2.0); EOSINOPHILS % (AUTO) 0.1 % (0.0-6.0); HEMATOCRIT 27 % (39-51); HEMOGLOBIN 8.7 g/dL (13.5-17.5); LYMPHOCYTES # (AUTO) 0.7 /CMM (0.8-4.8); LYMPHOCYTES % (AUTO) 12.2 % (20.0-44.0); MEAN CORPUSCULAR HGB CONC 33 g/dl (31.0-36.0); MEAN CORPUSCULAR VOLUME 96 fL (80-96); MONOCYTES # (AUTO) 0.4 /CMM (0.1-1.30); NEUTROPHILS # (AUTO) 4.4 /CMM (1.8-8.9); NEUTROPHILS % (AUTO) 80.4 % (43.0-81.0); PLATELET COUNT (AUTO) 191 /CMM (150-450); RDW COEFFICIENT OF VARIATION 17.8 (11.5-15.0); RED BLOOD CELL COUNT(AUTO) 2.77 MIL/uL (4.5-6.0); WHITE BLOOD COUNT (AUTO) 5.5 K/uL (4.3-11.0)
[2018-04-10 06:45] LABS: CALCIUM, SERUM 8.3 mg/dL (8.5-10.1); CARBON DIOXIDE 39 mmol/L (21-32); CHLORIDE 99 mmol/L (98-107); CREATININE 0.6 mg/dL (0.6-1.3); GLUCOSE 72 mg/dL (74-106); MAGNESIUM 2.1 mg/dL (1.8-2.4); PHOSPHORUS 2.3 mg/dL (2.5-4.9); POTASSIUM 4.4 mmol/L (3.5-5.1); SODIUM SERUM 139 mmol/L (136-145); UREA NITROGEN, BLOOD 21 mg/dL (7-18)
[2018-04-10] MEDS: BLOOD SUGAR DIAGNOSTIC 1 EACH STRIP IN SCH ×3 (06:46→17:34)
--- NOTE | 2018-04-10 06:58 | NUR ---
TELE 1 RN NOTE PT IN BED ASLEEP, AROUSABLE. . NO DISTRESS OR DISCOMFORT NOTED. NO SS OF PAIN NOTED. KEPT HIM DRY AND CLEAN, ALL NEEDS ATTENDED. SIDE RAILS UP X 3 AND CALL LIGHT WITHIN REACH. WILL ENDORSE TO DAY SHIFT NURSE FOR CONTINUE CARE.
[2018-04-10] MEDS: GLUCERNA SHAKE 237 ML CAN PO SCH ×3 (08:04→17:39)
[2018-04-10] MEDS: CADEXOMER IODINE 40 GM TUBE TP SCH (09:00)
[2018-04-10] MEDS: methylPREDNISolone SOD SUCC 125 MG/2ML VIAL IV SCH ×2 (09:17→17:39)
[2018-04-10] MEDS: ASCORBIC ACID 500 MG TABLET PO SCH (09:17)
[2018-04-10] MEDS: PANTOPRAZOLE 40 MG VIAL IV SCH (09:17)
[2018-04-10] MEDS: MULTIVITAMINS,THERAGRAN 1 UDTAB TABLET PO SCH (09:17)
[2018-04-10] MEDS: HEPARIN SODIUM, PORCINE 5000 UNITS/1 ML VIAL SQ SCH ×2 (09:19→20:38)
[2018-04-10] MEDS ORDERED: K PHOS NEUTRAL 250 MG TABLET PO ONE (12:00)
[2018-04-10] MEDS: DIGOXIN ELIX UDC 0.25 MG/5 ML UDC GT SCH (12:30)
[2018-04-10] MEDS: INSULIN REGULAR, HUMAN 100 UNIT/ML 3 ML VIAL SQ PRN (17:41)
--- NOTE | 2018-04-10 19:30 | NUR ---
RN CLOSING NOTES: RESTING WELL. BLOOD SUGARS MONITORED. REPORT TO [facility] GIVEN TO REID MOURA. HL ON RFA TO STAY. PT WILL HAVE 3 MORE DAYS OF ANTIBIOTICS ORDERED. AT BEDSIDE. WILL CONT TO MONITOR.
--- NOTE | 2018-04-10 19:38 | NUR ---
RECEIVED PATIENT RESTING IN BED IN BED, DAUGHTER AT THE BED SIDE, VSS AFEBRILE NO DISTRESS NOTED, NO S/S OF PAIN NOTED. PATIENT IS D/C'D TO [facility] AWAITING THE AMBULANCE
[2018-04-10] MEDS: CEFTRIAXONE 1 G in IV D5W 50 ML IV SCH (20:37)
--- NOTE | 2018-04-10 21:29 | NUR ---
AMBULANCE ARRIVED, REPORT IS GIVEN TO EMT, PATIENT IS READY TO GO TO [facility]
--- NOTE | 2018-04-10 21:32 | NUR ---
PATIENT LEFT THE UNIT
== END 2018-04-10 21:51 | DRG 166 ==
LOC: ER 17:16 → TELE1 19:42 → ICU 04-05 17:30 → TELE-TD 04-07 10:15 → TELE1 04-08 11:17
PROC: 5A09357 Assistance with Respiratory Ventilation, Less than 24 Consecutive Hours, Continuous Positive Airway Pressure (ICD-10-PCS; principal; 2018-04-05)
PROC: 0JBR0ZZ Excision of Left Foot Subcutaneous Tissue and Fascia, Open Approach (ICD-10-PCS; 2018-04-05)
PROC: 5A09357 Assistance with Respiratory Ventilation, Less than 24 Consecutive Hours, Continuous Positive Airway Pressure (ICD-10-PCS; 2018-04-07)
PROC: 5A09357 Assistance with Respiratory Ventilation, Less than 24 Consecutive Hours, Continuous Positive Airway Pressure (ICD-10-PCS; 2018-04-08)
DX: J18.9 Pneumonia, unspecified organism (principal); I21.A1 Myocardial infarction type 2; N17.0 Acute kidney failure with tubular necrosis; J96.21 Acute and chronic respiratory failure with hypoxia; E43 Unspecified severe protein-calorie malnutrition; D69.2 Other nonthrombocytopenic purpura; I50.23 Acute on chronic systolic (congestive) heart failure; E11.65 Type 2 diabetes mellitus with hyperglycemia; E87.3 Alkalosis; L89.323 Pressure ulcer of left buttock, stage 3; L89.623 Pressure ulcer of left heel, stage 3; J96.22 Acute and chronic respiratory failure with hypercapnia; J44.0 Chronic obstructive pulmonary disease with (acute) lower respiratory infection; R64 Cachexia; Z68.1 Body mass index [BMI] 19.9 or less, adult; L89.150 Pressure ulcer of sacral region, unstageable; L89.310 Pressure ulcer of right buttock, unstageable; I27.81 Cor pulmonale (chronic); J84.10 Pulmonary fibrosis, unspecified; I48.91 Unspecified atrial fibrillation; Z95.1 Presence of aortocoronary bypass graft; I25.10 Atherosclerotic heart disease of native coronary artery without angina pectoris; E03.9 Hypothyroidism, unspecified; Z87.891 Personal history of nicotine dependence; D72.829 Elevated white blood cell count, unspecified; D63.8 Anemia in other chronic diseases classified elsewhere; Z95.0 Presence of cardiac pacemaker; J44.9 Chronic obstructive pulmonary disease, unspecified; I87.2 Venous insufficiency (chronic) (peripheral); D50.9 Iron deficiency anemia, unspecified; I25.2 Old myocardial infarction
CPT/HCPCS: 36415; 36600; 71045-TC; 80048-TC; 80053-TC; 80061-TC; 82272-TC; 82803-TC; 82945-TC; 82962-TC; 83540-TC; 83735-TC; 83880; 84100-TC; 84134-TC; 84443-TC; 84484-TC; 85025-TC; 85610-TC; 85730-TC; 87081-TC; 94760-TC; 94799-TC; 97110-TC; 97116-TC; 97530-TC; 99082-TC; A4606; A6402; A6403; C9113; J0696; J1120; J1160; J1644; J1815; J2916; J2930; J3490; J7030; J7040; J7050; J7060; Z7610